=== PATIENT | female | born 1970 | race Caucasian/White ===

== ENCOUNTER 2020-08-01 07:45 | Outpatient (CLI) | payer OTHER, SELFPAY ==
[2020-08-01 08:14] LABS: Hematocrit 42.9 % (37.0-47.0); Hemoglobin 14.3 g/dL (12.0-15.0); Mean Corpuscular HGB Conc 33.3 g/dl (32-36); Mean Corpuscular Hemoglobin 30.7 pg (26-34); Mean Corpuscular Volume 92.1 fl (80-100); Mean Platelet Volume 9.6 fl (7.4-10.4); Platelet Count Result 291 k/mm3 (150-375); Red Blood Count 4.66 M/mm3 (4.2-5.4); Red Cell Distribution Width 12.9 % (11.5-14.5); White Blood Count 6.3 K/mm3 (4.5-10.0)
[2020-08-01 08:47] LABS: Erythrocyte Sedimentation Rate 23 mm/hr (0-20)
[2020-08-01 08:48] LABS: Alanine Aminotransferase 10 U/L (4-35); Albumin Level 3.9 g/dL (3.5-5.1); Alkaline Phosphatase 95 U/L (38-126); Anion Gap 7 mmol/L (8-16); Aspartate Amino Transferase 23 U/L (14-36); Bilirubin,Total 0.4 mg/dL (0.2-1.3); Blood Urea Nitrogen 12 mg/dL (7-17); Calcium 9.3 mg/dL (8.4-10.2); Carbon Dioxide 27 mmol/L (22-30); Chloride 106 mmol/L (98-107); Cholesterol 265 mg/dL (0-200); Estimated Glomerular Filt Rate > 60; Glucose 97 mg/dL (65-105); HDL Direct 51 mg/dL; Potassium 4.8 mmol/L (3.4-5.0); Rheumatoid Factor < 8.6 IU/ML (<12); Sodium 140 mmol/L (137-145); Triglycerides 121 mg/dL (<150)
[2020-08-01 08:57] LABS: LDL Cholesterol Direct 189 mg/dL
[2020-08-01 09:26] LABS: SARS-CoV-2 IgG Non-Reactive (NonReactive)
== END 2020-08-01 07:46 | disposition home or self-care (01) ==
PROVIDERS: PCP Family Medicine; Visit Provider Nurse Practitioner Family
DX: M25.50 Pain in unspecified joint (principal); F32.9 Major depressive disorder, single episode, unspecified; F41.9 Anxiety disorder, unspecified; Z13.220 Encounter for screening for lipoid disorders
CPT/HCPCS: 36415; 80053; 80061; 84443; 85027; 85652; 86038; 86430; 86769

== ENCOUNTER → 2021-01-09 08:56 | Outpatient (CLI) | payer BC, SELFPAY ==
[2021-01-09 21:09] LABS: SARS-CoV-2 RNA PCR Negative
== END ==
PROVIDERS: PCP Family Medicine; Visit Provider Nurse Practitioner Family
DX: R68.89 Other general symptoms and signs (principal); Z20.822 Contact with and (suspected) exposure to COVID-19
CPT/HCPCS: C9803; U0003; U0005

== ENCOUNTER 2021-01-19 12:55 | Emergency (ER) | payer BC, MEDICAID, SELFPAY ==
[2021-01-19 13:17] VITALS: BP 129/70; PULSE 107; RESP 20; TEMP 36.6; O2SAT 98
--- NOTE | 2021-01-19 13:48 | ED.GENADULT ---
HPI - General Adult General Chief complaint: Overdose Stated complaint: Well check Time Seen by Provider: 01/19/21 13:40 Source: patient, RN notes reviewed and old records reviewed Mode of arrival: ambulatory Limitations: no limitations History of Present Illness HPI narrative: 50year old female presents to express care with complaints of accidental ingestion of Adderall this morning. Patient states that she was switched to Vyvanse 30 mg extended release about 2 weeks ago and she took dose at 1000 this morning. She noticed 4 doses of her Adderall on the counter and put them in her hand to put into medicine bottle and somehow got distracted and grabbed her soda and took them without thinking at approximately 1130. After realizing what she had done she called her doctor and they told her go express care and get her blood pressure checked. After talking with poison control and the fact that Adderall was also time release and doesn't peek for 7-10 hours recommendation of patient needing cardiac monitoring for at least 4-5 more hours with labs and EKG, decision made to send to ER with family. Patient is very talkative and anxious, denies any chest pain, no chest pressure, no dyspnea,or palpitation at this time. MD complaint: accidental overdose of Adderall XL Onset (ago): hour(s) (1130 today) Treatments prior to arrival: none Related Data Home Medications Medication Instructions Recorded Confirmed calcipotriene-betamethasone 1 applic TOPICAL .PER PRESCRIPTION 01/19/21 01/19/21 [Enstilar] RE ixekizumab [Taltz Autoinjector (2 80 mg SUBCUT WEEKLY 01/19/21 01/19/21 Pack)] Allergies Allergy/AdvReac Type Severity Reaction Status Date / Time No Known Allergies Allergy Verified 01/19/21 14:02 Review of Systems Review of Systems: CONSTITUTIONAL: Denies fever, chills, or sweats. EYES: Denies visual changes, redness, or discharge. ENT: Denies rhinorrhea, congestion, sore throat, or otalgia. CARDIOVASCULAR: Denies chest pain, palpitations, or edema. RESPIRATORY: Denies cough or dyspnea. GASTROINTESTINAL: Denies abdominal pain, nausea, vomiting, or diarrhea. GENITOURINARY: Denies dysuria or hematuria. SKIN: Denies rash or itching. MUSCULOSKELETAL: Denies back pain, joint pain, or myalgia. NEUROLOGIC: Denies headache, numbness, or weakness. PSYCHIATRIC: Positive history anxiety or depression. All systems reviewed & are unremarkable except as noted in HPI and below PMFSH Past Medical History Medical History (Updated 01/19/21 @ 17:23 by Cass Salomon NP) Acquired lymphedema Anxiety and depression Attention-deficit hyperactivity disorder, predominantly hyperactive type BMI 34.0-34.9,adult Fracture of right heel surgical repair Insomnia Psoriasis Tobacco abuse Surgical History Surgical History (Updated 01/19/21 @ 16:54 by Cass Salomon NP) History of History of dilatation and curettage History of laparoscopy History of varicose vein stripping Family History Family History Grandparent Hypertension Family history of lung cancer Other Diabetes mellitus Family history of coronary artery disease Social History Social History Smoking status: Current every day smoker Second hand tobacco smoke exposure: No Alcohol intake: current Substance use type: does not use Gender identity (if verbalized by the patient): Female Comments At time of signature, agree with nursing past medical, surgical, social and family history. There is no relevant family history pertinent to the presenting complaint Exam Narrative: GENERAL: Well-appearing, well-nourished, and in no acute distress. HEAD: Normocephalic, atraumatic. EYES: PERRLA and EOMI. ENT: Nares clear, no rhinorrhea or epistaxis. Mucous membranes moist.TMs normal with good light reflex, throat pink with no lesions or exudates NECK: Supple.
[2021-01-19 14:19] VITALS: PULSE 92
--- NOTE | 2021-01-19 14:21 | ECG_ITS ---
Measurements Intervals [place] Rate: 92 P: 73 [place]: 117 QRS: 28 QRSD: 104 T: 64 QT: 381 QTc: 472 Interpretive Statements SINUS RHYTHM WITH SHORT [place] INTERVAL POSSIBLE RIGHT ATRIAL ENLARGEMENT POSSIBLE LEFT ATRIAL ENLARGEMENT INCOMPLETE RIGHT BUNDLE BRANCH BLOCK BASELINE ARTIFACT- I, II, III, AVR, AVL BORDERLINE ECG Electronically Signed On 01-19-2021 15:27:26 CDT by Milan Nunez D.O.
--- NOTE | 2021-01-19 15:48 | PC.NURSE ---
143-Poison control called at [phone]. Spoke to Art at poison control-given pts ingestion of 60mg of xl adderall which will not peak until 7-10 hrs after ingestion, recommendation is to do EKG, bmp and monitor pt for 4-5 hrs until past peak. Case number is [id number]. Art asks for poison control to be called when pt arrives in ED.
--- NOTE | 2021-01-19 15:57 | PC.NURSE ---
1419-Pt unchanged from initial assessment. NAD noted. Will continue to monitor.
--- NOTE | 2021-01-19 15:58 | PC.NURSE ---
1450-Pt unchanged from prior assessment. NAD noted. Discussed with pt need to be transferred to [facility] ED for monitoring due to recommendations from poison control. Listened to pts concerns and questions answered. Pt boyfriend en route to pick her up to take her to ED. Will continue to monitor.
== END 2021-01-19 15:31 | disposition short-term general hospital (02) ==
PROVIDERS: Emergency Provider Registered Nurse; PCP Family Medicine
DX: T43.621A Poisoning by amphetamines, accidental (unintentional), initial encounter (principal); I45.10 Unspecified right bundle-branch block; F17.210 Nicotine dependence, cigarettes, uncomplicated; F41.9 Anxiety disorder, unspecified; F90.9 Attention-deficit hyperactivity disorder, unspecified type
CPT/HCPCS: 93005; 99213; G0463

== ENCOUNTER 2021-01-19 15:55 | Emergency (ER) | payer BC, SELFPAY ==
[2021-01-19 15:57] VITALS: BP 144/107; PULSE 111; RESP 18; TEMP 36.8; O2SAT 99
[2021-01-19 16:12] VITALS: RESP 17
[2021-01-19 16:13] VITALS: BP 153/91; PULSE 97; RESP 14; O2SAT 97
[2021-01-19 16:43] LABS: Add Urine Microscopic? YES; Appearance Urine Cloudy (Clear); Bacteria Urine Trace /hpf; Bilirubin Urine Negative (Negative); Blood Urine 3+ (Negative); Color Urine Yellow (Yellow); Glucose Urine UA Negative (Negative); Ketones Urine Negative (Negative); Leukocyte Esterase Ur Negative LEU/UL (Negative); Mucus Urine Rare /lpf; Nitrate Urine Negative (Negative); Protein Urine 1+ mg/dL (Negative); RBC Urine 0-2 /hpf (0-2); Specific Grav Ur 1.005 (1.001-1.035); Squamous Epithelial Cell Urine Many /hpf (Few); Urobilinogen Urine Negative mg/dL (<2.0); WBC Urine 0-3 /hpf
[2021-01-19 17:46] VITALS: BP 138/88; PULSE 98; RESP 18; O2SAT 100
--- NOTE | 2021-01-19 17:50 | ED.OVERDOSE ---
HPI - Overdose General Chief Complaint: Overdose Stated Complaint: Took Adderal 60 mg Time Seen by Provider: 01/19/21 17:44 Source: patient Mode of arrival: ambulatory Limitations: no limitations History of Present Illness HPI Narrative: Patient is a 50-year-old female complaining of accidentally taking 4 of her Adderall pills around 11:30 AM this morning. When she realized that she took them she went to the urgent care, poison control was contacted and was advised that she need to be observed for 7 hours and that is why she was sent here. Patient has been asymptomatic throughout. She states that the Adderall pills are in her pillbox she took it out but in her hand was supposed to put it back in the bottle but somehow she accidentally put in her mouth, I am such a dummy , patient laughing. Denies any suicidal or homicidal thoughts. Denies any thoughts of injuring herself. Related Data Home Medications Medication Instructions Recorded Confirmed calcipotriene-betamethasone 1 applic TOPICAL .PER PRESCRIPTION 01/19/21 01/19/21 [Enstilar] RE ixekizumab [Taltz Autoinjector (2 80 mg SUBCUT WEEKLY 01/19/21 01/19/21 Pack)] Allergies Allergy/AdvReac Type Severity Reaction Status Date / Time No Known Allergies Allergy Verified 01/19/21 14:02 Review of Systems Review of Systems: All systems reviewed & are unremarkable except as noted in HPI and below Constitutional: Constitutional: Denies body ache(s), Denies chills, Denies excessive sweating, Denies fatigue, Denies fever(s), Denies headache(s), Denies lethargy, Denies malaise, Denies weakness and Denies weight loss Eyes: Eyes: Denies blurry vision, Denies change in vision and Denies loss of vision ENT: Denies dizziness, Denies ear discharge, Denies headache(s), Denies lip swelling, Denies epistaxis, Denies nasal congestion, Denies neck pain, Denies throat swelling and Denies tongue swelling Cardiovascular: Cardiovascular: Denies chest pain, Denies chest pain at rest, Denies chest pain with activity, Denies diaphoresis, Denies rapid heart rate, Denies edema, Denies irregular heart rhythm, Denies lightheadedness, Denies palpitations, Denies dyspnea and Denies dyspnea on exertion Respiratory: Respiratory: Denies chest congestion, Denies cough, Denies hemoptysis, Denies dyspnea and Denies dyspnea on exertion Gastrointestinal: Gastrointestinal: Denies abdominal pain, Denies melena, Denies hematochezia, Denies diarrhea, Denies nausea, Denies vomiting and Denies hematemesis Musculoskeletal: Musculoskeletal: Denies abnormal gait, Denies deformity, Denies joint swelling, Denies limited range of motion, Denies neck pain and Denies numbness Neurologic: Denies Abnormal speech present, Denies abnormal gait, Denies confusion, Denies dizziness, Denies headache(s), Denies focal weakness, Denies loss of vision, Denies numbness, Denies Other visual disturbances, Denies Sensory deficit (Neuro) and Denies weakness Psychiatric: Psychiatric: Denies confusion, Denies depression, Denies auditory hallucinations, Denies homicidal ideation and Denies suicidal ideation Endocrine: Endocrine: Denies cold intolerance, Denies excessive sweating, Denies fatigue, Denies heat intolerance and Denies palpitations Hematologic/Lymphatic: Hematologic/Lymphatic: Denies easy bleeding and Denies easy bruising Allergic/Immunologic: Allergic/Immunologic: Denies lip swelling, Denies throat swelling and Denies tongue swelling PMFSH Past Medical History Medical History Acquired lymphedema Anxiety and depression Attention-deficit hyperactivity disorder, predominantly hyperactive type BMI 34.0-34.9,adult Fracture of right heel surgical repair Insomnia Psoriasis Tobacco abuse Surgical History Surgical History History of History of dilatation and curettage History of laparoscopy History of varicose
[2021-01-19 18:59] VITALS: BP 127/92
== END 2021-01-19 19:02 | disposition home or self-care (01) ==
PROVIDERS: Physician Assistant; Emergency Provider Emergency Medicine; PCP Family Medicine
DX: T43.621A Poisoning by amphetamines, accidental (unintentional), initial encounter (principal); F90.1 Attention-deficit hyperactivity disorder, predominantly hyperactive type; F41.9 Anxiety disorder, unspecified; F32.9 Major depressive disorder, single episode, unspecified; F17.200 Nicotine dependence, unspecified, uncomplicated
CPT/HCPCS: 81001; 81025; 93005; 99213; 99283; G0463

== ENCOUNTER 2021-07-07 08:02 | Outpatient (CLI) | payer BC, SELFPAY ==
--- NOTE | ~2021-07-07 | XR_ITS ---
EXAMINATION: XR chest 2V DATE: 07/07/2021 08:39 INDICATION: Shortness of breath. TECHNIQUE: Frontal and lateral views of the chest were obtained. COMPARISON: None. FINDINGS: The chest demonstrates clear lungs without pneumonia, pleural effusion, or pneumothorax. Th e heart size is normal. IMPRESSION: 1. No acute cardiopulmonary disease. Reviewed, dictated and finalized at location E. [place] [employer]
== END 2021-07-07 08:03 ==
PROVIDERS: PCP Family Medicine; Visit Provider Nurse Practitioner Family
DX: R06.02 Shortness of breath (principal)
CPT/HCPCS: 71046

== ENCOUNTER 2021-09-21 10:58 | Emergency (ER) | payer BC, SELFPAY ==
[2021-09-21] VITALS (10 sets, daily range): BP systolic 103–152; BP diastolic 70–108; PULSE 56–65; RESP 13–18; TEMP 36.5; O2SAT 96–100
--- NOTE | ~2021-09-21 | CT_ITS ---
EXAMINATION: CT abd pelvis lumbar wo con DATE: 09/21/2021 12:49 INDICATION: Low back pain. TECHNIQUE: Computed tomography (CT) of the abdomen and pelvis and lumbar spine was performed without intravenous contrast. Automated exposure control and iterative reconstruction technique were employed . The dose-length product was 1046.07 mGy-cm. COMPARISON: None. FINDINGS: CT ABDOMEN AND PELVIS: The visualized portions of the lung bases demonstrate mild atelectasis. A calc ified right lung nodule is consistent with old granulomatous disease. There is a 4 mm nodule in right lower lobe, likely benign. No pleural effusion. The heart size is normal. No pericardial effusion. T he liver is normal. There are gallstones in the gallbladder, which is normal in size. Calcifications in the spleen are consistent with old granulomatous disease. The pancreas, adrenal glands, and kidney s are normal. There is no urolithiasis. There is an intrauterine device in expected position. There i s diverticulosis of the colon without evidence of diverticulitis. The appendix is normal. Calcified a bdominal lymph nodes are consistent with old granulomatous disease. There is an umbilical hernia cont aining fat. There is fat stranding at the root of the small bowel mesentery. There is no free intrape ritoneal fluid. CT LUMBAR SPINE: There is 14 degrees dextroscoliosis of lumbar spine. There is mild chronic anterior wedging of T12 and L1 vertebral bodies. There are Schmorl's nodes at most levels. There is mildly dec reased disc height at L1-L2, L2-L3, and L4-L5 and severely decreased disc height at L5-S1 with endpla te remodeling. There are hemangiomas in T12 and L1 vertebral bodies. The following disc levels are sp ecifically discussed: L1-L2: The disc is bulging. There is mild bilateral facet joint osteoarthritis. There is no neural fo raminal stenosis. There is mild central canal stenosis. L2-L3: The disc is bulging. There is moderate right and mild left facet joint osteoarthritis. There i s mild neural foraminal stenosis. There is mild central canal stenosis. L3-L4: The disc is bulging. There is severe bilateral facet joint osteoarthritis. There is mild bilat eral neural foraminal stenosis. There is mild central canal stenosis. L4-L5: The disc is bulging. There is severe bilateral facet joint osteoarthritis. There is mild right and moderate left neural foraminal stenosis. There is mild central canal stenosis. L5-S1: The disc is bulging. There is severe bilateral facet joint osteoarthritis. There is mild bilat eral neural foraminal stenosis. There is mild central canal stenosis. IMPRESSION: 1. No urolithiasis. 2. Cholelithiasis. 3. Fat stranding at the root of the small bowel mesentery, likely inflammation or scarring (mesenteri c panniculitis). 4. Umbilical hernia containing fat. 5. Moderate lumbar spondylosis. 6. Lumbar dextroscoliosis. Reviewed, dictated and finalized at location A. IMPRESSION: 1. No urolithiasis. 2. Cholelithiasis. 3. Fat stranding at the root of the small bowel mesentery, likely inflammation or scarring (mesenteric panniculitis). 4. Umbilical hernia containing fat. 5. Moderate lumbar spondylosis. 6. Lumbar dextroscoliosis.
--- NOTE | 2021-09-21 12:19 | ED.BACK ---
HPI - Back Pain/Injury General Chief Complaint: Back Pain/Injury Stated Complaint: back pain Time Seen by Provider: 09/21/21 12:19 Source: patient, family and EMS Mode of arrival: EMS Limitations: no limitations History of Present Illness HPI Narrative: Patient is 51 years old white female presented to the ED with sharp stabbing pain across lumbar area started 5 days ago, worse with any movement, better laying down still. Patient was seen by her family physician, [place] [facility] yesterday, been to chiropractor for the last few days without any improvement. Currently patient on hydrocodone, Flexeril and ibuprofen. Patient denies patient denies bowel dysfunction, bladder dysfunction, altered sensation, focal weakness, or saddle numbness, she denies any fever, chills, nausea, vomiting, abdominal pain, chest pain, radiation of pain. Related Data Home Medications Medication Instructions Recorded Confirmed ixekizumab [Taltz Autoinjector (2 80 mg SUBCUT WEEKLY 01/19/21 05/24/21 Pack)] Allergies Allergy/AdvReac Type Severity Reaction Status Date / Time No Known Allergies Allergy Verified 09/21/21 11:10 Review of Systems Review of Systems: All systems reviewed & are unremarkable except as noted in HPI and below PMFSH Past Medical History Medical History Acquired lymphedema Anxiety and depression Attention-deficit hyperactivity disorder, predominantly hyperactive type BMI 34.0-34.9,adult BMI 36.0-36.9,adult Chronic joint pain Fracture of right heel surgical repair GERD without esophagitis Insomnia Psoriasis Tobacco abuse Surgical History Surgical History History of History of dilatation and curettage History of laparoscopy History of varicose vein stripping Family History Family History Grandparent Hypertension Family history of lung cancer Other Diabetes mellitus Family history of coronary artery disease Social History Social History Smoking status: Current every day smoker Tobacco type: cigarettes Second hand tobacco smoke exposure: No Alcohol intake: current Substance use type: does not use Gender identity (if verbalized by the patient): Female Exam Narrative: General appearance: Well-developed, well-nourished Skin: Normal color Head: Normocephalic, nontraumatic Eyes: Clear conjunctiva ENT: Oropharynx normal, ears normal, nose normal Neck: Supple, nontender Chest and respiratory: Airway patent, no respiratory distress, no accessory muscle use Heart: Regular rate/rhythm Abdomen: Soft, nontender, no organomegaly, quiet bowel sounds Vascular: Normal peripheral pulses, normal capillary refill. Musculoskeletal: Severe diffuse tenderness across lumbar area, patient experience periodic spasm at the lumbar area with sudden scream of pain. Neurologic: Alert and oriented ?3, [employer] INS[employer]OR is normal as tested, no gross motor deficit Course Course Emergency Course: Stable, musculoskeletal pain is my concern. Vital Signs Vital signs: Vital Signs Temperature 36.5 C 09/21/21 11:06 Pulse Rate 56 L 09/21/21 11:06 Respiratory Rate 18 09/21/21 11:06 Blood Pressure 152/108 H 09/21/21 11:06 Pulse Oximetry 100 09/21/21 11:06 Temperature 36.5 C 09/21/21 11:06 Pulse Rate 56 L 09/21/21 11:06 Respiratory Rate 18 09/21/21 11:06 Blood Pressure 152/108 H 09/21/21 11:06 Pulse Oximetry 100 09/21/21 11:06 MDM - Back Pain/Injury MDM Narrative Medical decision making narrati
[2021-09-21] MEDS: diazePAM INJ (*CRX) 10 MG/2 ML SYRINGE 5 MG IV PUSH (12:53)
[2021-09-21] MEDS: HYDROmorphone HCL INJ (*CRX) 1 MG/ML SYR 0.5 MG IV PUSH (12:54)
[2021-09-21] MEDS: diphenhydrAMINE HCl INJ 50 MG/ML VIAL 25 MG IV PUSH (12:54)
[2021-09-21] MEDS: KETOROLAC 30 MG/ML VIAL (*BKC) IV PUSH (12:55)
[2021-09-21] MEDS: METOCLOPRAMIDE HCL INJ 10 MG/2 ML VIAL IV PUSH (12:55)
[2021-09-21 13:03] LABS: Basophils Absolute Auto 0.1 K/mm3 (0.0-0.1); Basophils Percent Auto 1.2 % (0.2-1.2); Eosinophils Absolute Auto 0.1 K/mm3 (0-0.3); Hemoglobin 12.4 g/dL (12.0-15.0); Immature Granulocyte Absolute 0.01 K/mm3 (0.00-0.031); Immature Granulocyte Percent A 0.2 % (0-0.5); Lymphocytes Absolute Auto 2.33 K/mm3 (0.9-3.2); Lymphocytes Percent Auto 39.2 % (18.3-44.2); Mean Corpuscular HGB Conc 32.6 g/dl (32-36); Mean Corpuscular Hemoglobin 30.8 pg (26-34); Mean Corpuscular Volume 94.3 fl (80-100); Mean Platelet Volume 9.8 fl (7.4-10.4); Monocytes Absolute Auto 0.6 K/mm3 (0.1-0.6); Monocytes Percent Auto 9.9 % (2.6-8.5); Neutrophils Absolute Auto 2.8 K/mm3 (1.3-6.7); Neutrophils Percent Auto 47.5 % (45.5-73.1); Platelet Count Result 190 k/mm3 (150-375); Red Blood Count 4.03 M/mm3 (4.2-5.4); Red Cell Distribution Width 13.1 % (11.5-14.5)
--- NOTE | 2021-09-21 13:12 | PC.NURSE ---
called lab and talked to Haydee. added on a CRP and ESR at 1312
[2021-09-21 13:13] LABS: Alanine Aminotransferase 10 U/L (4-35); Albumin Level 3.1 g/dL (3.5-5.1); Alkaline Phosphatase 82 U/L (38-126); Anion Gap 1 mmol/L (8-16); Aspartate Amino Transferase 29 U/L (14-36); Bilirubin,Total 0.4 mg/dL (0.2-1.3); Blood Urea Nitrogen 5 mg/dL (7-17); Calcium 8.3 mg/dL (8.4-10.2); Carbon Dioxide 27 mmol/L (22-30); Chloride 110 mmol/L (98-107); Estimated CRCL calculation 109 ml/min; Estimated Glomerular Filt Rate > 60; Glucose 95 mg/dL (65-110); Potassium 3.7 mmol/L (3.4-5.0); Sodium 138 mmol/L (137-145)
[2021-09-21 13:52] LABS: Erythrocyte Sedimentation Rate 1 mm/hr (0-20)
== END 2021-09-21 14:22 | disposition home or self-care (01) ==
PROVIDERS: Emergency Provider Emergency Medicine; PCP Family Medicine
DX: M54.50 Low back pain, unspecified (principal); K21.9 Gastro-esophageal reflux disease without esophagitis; L40.9 Psoriasis, unspecified; F41.9 Anxiety disorder, unspecified; F32.A Depression, unspecified; K80.20 Calculus of gallbladder without cholecystitis without obstruction; K42.9 Umbilical hernia without obstruction or gangrene; M47.816 Spondylosis without myelopathy or radiculopathy, lumbar region
CPT/HCPCS: 36415; 72131; 74176; 80053; 85025; 85652; 86140; 96374; 96375; 99284; J1170; J1200; J1885; J2765; J3360

== ENCOUNTER 2021-11-20 18:50 | Emergency (ER) | payer BC, SELFPAY ==
--- NOTE | ~2021-11-20 | XR_ITS ---
XR hand RT min 3V DATE: 11/20/2021 19:06 INDICATION: Hyperextension injury of second through fifth fingers. Pain particularly at the third and fourth proximal phalanges TECHNIQUE: 3 views COMPARISON: None FINDINGS: No fracture or dislocation, periosteal reaction or bone destruction. Mild osteoarthritic change at the interphalangeal joints. IMPRESSION: No fracture or dislocation Reviewed, dictated and finalized at location B. IMPRESSION: No fracture or dislocation
[2021-11-20 19:10] VITALS: BP 145/94; PULSE 83; RESP 18; TEMP 36.9; O2SAT 99
--- NOTE | 2021-11-20 19:28 | ED.UPPEXIN ---
HPI - Extremity Injury (Upper) General Chief Complaint: Extremity Injury, Upper Stated Complaint: Rt Hand Pain Time Seen by Provider: 11/20/21 19:20 Source: patient, RN notes reviewed and old records reviewed History of Present Illness HPI narrative: 51-year-old female presents Express Care with complaints of injury to her right hand when she hyperextended her second through fifth fingers with pain mainly in the third and fourth proximal phalanges. Patient states she has 2 large great Mariusz's and she was dealing with them and the dog backed up against her hand causing hyperextension. Patient has applied ice to her right hand. MD complaint: injury to: right and hand Onset (ago): hour(s) (2.5 hours ago) Handedness: right Severity scale (1-10): 10 Treatments prior to arrival: cold therapy Related Data Home Medications Medication Instructions Recorded Confirmed levonorgestrel 20 mcg/24 hours (7 1 device intrauterine ONCE 11/20/21 11/20/21 yrs) 52 mg intrauterine device (Mirena) Allergies Allergy/AdvReac Type Severity Reaction Status Date / Time No Known Allergies Allergy Verified 11/20/21 19:04 Review of Systems Review of Systems: CONSTITUTIONAL: Denies fever, chills, or sweats. EYES: Denies visual changes, redness, or discharge. ENT: Denies rhinorrhea, congestion, sore throat, or otalgia. CARDIOVASCULAR: Denies chest pain, palpitations, or edema. RESPIRATORY: Denies cough or dyspnea. GASTROINTESTINAL: Denies abdominal pain, nausea, vomiting, or diarrhea. GENITOURINARY: Denies dysuria or hematuria. SKIN: Denies rash or itching. MUSCULOSKELETAL: Denies back pain, positive for right hand pain and discomfort to proximal aspect of 2nd through 5th fingers, or myalgia. NEUROLOGIC: Denies headache, numbness, or weakness. PSYCHIATRIC: Positive history anxiety or depression. [facility] Past Medical History Medical History Acquired lymphedema Anxiety and depression Attention-deficit hyperactivity disorder, predominantly hyperactive type BMI 34.0-34.9,adult BMI 36.0-36.9,adult Cholelithiasis Chronic joint pain Dextroscoliosis of thoracolumbar spine Fracture of right heel surgical repair GERD without esophagitis Insomnia Lumbar spondylosis Mesenteric panniculitis Psoriasis Tobacco abuse Umbilical hernia Wedge fracture of lumbar vertebra Surgical History Surgical History History of History of dilatation and curettage History of laparoscopy History of varicose vein stripping Family History Family History Grandparent Hypertension Family history of lung cancer Other Diabetes mellitus Family history of coronary artery disease Social History Social History Smoking status: Current every day smoker Tobacco type: cigarettes Second hand tobacco smoke exposure: No Alcohol intake: current Substance use type: does not use Gender identity (if verbalized by the patient): Female Comments At time of signature, agree with nursing past medical, surgical, social and family history. There is no relevant family history pertinent to the presenting complaint Exam Narrative: GENERAL: Well-appearing, well-nourished, and in no acute distress. HEAD: Normocephalic, atraumatic. EYES: PERRLA and EOMI. ENT: Nares clear, no rhinorrhea or epistaxis. Mucous membranes moist. TMs normal with good light reflex, throat pink with no lesions or exudate NECK: Supple. No lymphadenopathy CHEST: Clear to auscultation. No respiratory distress SaO2 99% on room air no tachypnea HEART: Regular rate and rhythm. No murmur heard. Normal peripheral pulses. ABDOMEN: Soft, nontender, nondistended, normal active bowel sounds. EXTREMITIES: Normal range of motion. No edema.Exception note: Mild edema to proximal aspec
== END 2021-11-20 19:49 | disposition home or self-care (01) ==
PROVIDERS: Emergency Provider Registered Nurse; PCP Family Medicine
DX: S69.91XA Unspecified injury of right wrist, hand and finger(s), initial encounter (principal); W54.1XXA Struck by dog, initial encounter; K21.9 Gastro-esophageal reflux disease without esophagitis; M47.816 Spondylosis without myelopathy or radiculopathy, lumbar region
CPT/HCPCS: 73130; 99213; G0463

== ENCOUNTER 2022-01-18 12:16 | Emergency (ER) | payer BC, SELFPAY ==
[2022-01-18] VITALS (20 sets, daily range): BP systolic 119–135; BP diastolic 49–97; PULSE 69; RESP 18; TEMP 36.5; O2SAT 97–100
--- NOTE | ~2022-01-18 | US_ITS ---
EXAMINATION: US pelvic complete w TV DATE: 01/18/2022 15:59 INDICATION: Nausea, vomiting and diarrhea. Right lower quadrant pain. Comparison:No prior studies for comparison. TECHNIQUE: Multiple transabdominal and endovaginal sonographic images of the pelvis performed. FINDINGS: The uterus measures 8.8 x 4.2 x 5.4 cm. There is an IUD present in the endometrium. The end ometrial complex measures 5 mm. There are nabothian cysts. The right ovary measures 2.8 x 1.5 x 1.5 cm and the left ovary measures 3.4 x 1.4 x 1.4 cm. There ar e small follicles in each ovary. Normal doppler signal in both ovaries. There is no free fluid in the pelvis. There are no abnormal masses seen on either side. IMPRESSION: 1. Unremarkable pelvic ultrasound. IUD identified in the endometrium. Reviewed, dictated and finalized at location A.
--- NOTE | ~2022-01-18 | CT_ITS ---
EXAMINATION: CT abdomen pelvis w con DATE: 01/18/2022 14:43 INDICATION: Right lower quadrant abdominal pain. Nausea and vomiting. TECHNIQUE: Computed tomography (CT) of the abdomen and pelvis was performed with 100 mL Omnipaque 350 intravenous contrast. Automated exposure control and iterative reconstruction technique were employe d. The dose-length product was 847.94 mGy-cm. COMPARISON: CT abdomen and pelvis 09/21/2021 FINDINGS: The visualized portions of the lung bases demonstrate mild atelectasis. A calcified right l javier nodule is consistent with old granulomatous disease. No pleural effusion. The heart size is aron l. No pericardial effusion. The liver is normal. Calcifications in the spleen are consistent with old granulomatous disease. There are gallstones in the gallbladder, which is normal in size. The pancrea s, adrenal glands, and kidneys are normal. There is an intrauterine device in expected position. Ther e is diverticulosis of the colon without evidence of diverticulitis. The appendix is normal. There is an umbilical hernia containing fat. There are no pathologically enlarged lymph nodes. There is no fr ee intraperitoneal fluid. There is lumbar dextroscoliosis and severe spondylosis. IMPRESSION: 1. Cholelithiasis. No evidence of acute cholecystitis. 2. Umbilical hernia containing fat. Reviewed, dictated and finalized at location A.
[2022-01-18 13:00] LABS: Basophils Absolute Auto 0.1 K/mm3 (0.0-0.1); Basophils Percent Auto 1.2 % (0.2-1.2); Eosinophils Absolute Auto 0.1 K/mm3 (0-0.3); Eosinophils Percent Auto 1.6 % (0-4.4); Hematocrit 44.3 % (37.0-47.0); Hemoglobin 14.7 g/dL (12.0-15.0); Lymphocytes Absolute Auto 1.99 K/mm3 (0.9-3.2); Lymphocytes Percent Auto 39.2 % (18.3-44.2); Mean Corpuscular HGB Conc 33.2 g/dl (32-36); Mean Corpuscular Hemoglobin 30.1 pg (26-34); Mean Corpuscular Volume 90.6 fl (80-100); Mean Platelet Volume 10.1 fl (7.4-10.4); Monocytes Absolute Auto 0.4 K/mm3 (0.1-0.6); Monocytes Percent Auto 8.1 % (2.6-8.5); Neutrophils Absolute Auto 2.5 K/mm3 (1.3-6.7); Neutrophils Percent Auto 49.9 % (45.5-73.1); Platelet Count Result 281 k/mm3 (150-375); Red Blood Count 4.89 M/mm3 (4.2-5.4); Red Cell Distribution Width 12.5 % (11.5-14.5); White Blood Count 5.1 K/mm3 (4.5-10.0)
[2022-01-18 13:15] LABS: Alanine Aminotransferase 9 U/L (6-35); Albumin Level 4.5 g/dL (3.5-5.1); Alkaline Phosphatase 90 U/L (38-126); Anion Gap 8 mmol/L (8-16); Aspartate Amino Transferase 26 U/L (14-36); Bilirubin,Total 0.5 mg/dL (0.2-1.3); Blood Urea Nitrogen 5 mg/dL (7-17); Calcium 9.8 mg/dL (8.4-10.2); Carbon Dioxide 25 mmol/L (22-30); Chloride 102 mmol/L (98-107); Estimated CRCL calculation 102 ml/min; Estimated Glomerular Filt Rate > 60; Glucose 100 mg/dL (65-110); Lipase 41 U/L (23-300); Sodium 135 mmol/L (137-145)
[2022-01-18 13:19] LABS: Appearance Urine Clear (Clear); Bilirubin Urine Negative (Negative); Color Urine Yellow (Yellow); Glucose Urine UA Negative (Negative); Ketones Urine Negative (Negative); Leukocyte Esterase Ur Negative LEU/UL (Negative); Nitrate Urine Negative (Negative); Protein Urine Negative (Negative); Specific Grav Ur <= 1.005 (1.001-1.035); Urobilinogen Urine 0.2 mg/dL (<2.0)
[2022-01-18 13:30] LABS: Bacteria Urine Trace /hpf; Mucus Urine Rare /lpf; RBC Urine 0-2 /hpf (0-2); Squamous Epithelial Cell Urine Rare /hpf (Few); WBC Urine 0-3 /hpf
[2022-01-18 13:31] LABS: Add Urine Microscopic? YES; Blood Urine Trace-Intact (Negative)
--- NOTE | 2022-01-18 13:58 | ED.ABDPAIN ---
HPI - Abdominal Pain General Chief Complaint: Abdominal Pain Stated Complaint: abd pain Time Seen by Provider: 01/18/22 13:32 History of Present Illness HPI narrative: Patient is a 51-year-old female who presents to the ER with right lower quadrant abdominal pain. Abdominal discomfort began 2 days ago was associate with diarrhea. Pain settled in the right lower quadrant. Hurts worse with movement and palpation. Diarrhea is stopped. No fevers or chills or sweats. No urinary frequency urgency or dysuria. No additional concerns. Related Data Home Medications Medication Instructions Recorded Confirmed levonorgestrel 20 mcg/24 hours (7 1 device intrauterine ONCE 11/20/21 01/18/22 yrs) 52 mg intrauterine device (Mirena) Allergies Allergy/AdvReac Type Severity Reaction Status Date / Time No Known Allergies Allergy Verified 01/18/22 11:35 Review of Systems Review of Systems: All systems reviewed & are unremarkable except as noted in HPI and below Constitutional: Constitutional: Denies chills, Denies fatigue and Denies fever(s) ENT: Denies nasal congestion and Denies sore throat Cardiovascular: Cardiovascular: Denies chest pain and Denies rapid heart rate Gastrointestinal: Gastrointestinal: Reports abdominal pain and Reports diarrhea PMFSH Past Medical History Medical History (Updated 01/18/22 @ 17:28 by Zaki Ferguson MD) Abdominal pain, RLQ Acquired lymphedema Anxiety and depression Attention-deficit hyperactivity disorder, predominantly hyperactive type BMI 34.0-34.9,adult BMI 36.0-36.9,adult BMI over 35 Cholelithiasis Chronic joint pain Dextroscoliosis of thoracolumbar spine Fracture of right heel surgical repair GERD without esophagitis Insomnia Jaw pain Lumbar spondylosis Mesenteric panniculitis Nausea and vomiting Psoriasis Tobacco abuse Umbilical hernia Wedge fracture of lumbar vertebra Surgical History Surgical History History of History of dilatation and curettage History of laparoscopy History of varicose vein stripping Family History Family History Grandparent Hypertension Family history of lung cancer Other Diabetes mellitus Family history of coronary artery disease Social History Social History Smoking status: Current every day smoker Tobacco type: cigarettes Second hand tobacco smoke exposure: No Alcohol intake: current Substance use type: does not use Gender identity (if verbalized by the patient): Female Exam Narrative: GENERAL: Well-appearing, well-nourished, and in no acute distress. HEAD: Normocephalic, atraumatic. ENT: Mucous membranes moist. CHEST: Clear to auscultation. No respiratory distress. HEART: Regular rate and rhythm. Normal peripheral pulses. ABDOMEN: Soft, moderate right lower quadrant tenderness with guarding, nondistended. EXTREMITIES: Normal range of motion. No edema. SKIN: Warm, dry, no rash. NEURO: Alert and oriented x3. PSYCH: Normal mood and affect. Course Course Emergency Course: Patient resting comfortably. Informed results. Discussed gallstones which is unlikely the cause of her pain but was noted on imaging. Vital Signs Vital signs: Vital Signs Temperature 97.7 F 01/18/22 12:51 Pulse Rate 69 01/18/22 12:51 Respiratory Rate 18 01/18/22 12:51 Blood Pressure 130/81 01/18/22 12:51 Pulse Oximetry 100 01/18/22 12:51 Oxygen Delivery Room Air 01/18/22 12:51 Temperature 97.7 F 01/18/22 12:51 Pulse Rate 69 01/18/22 12:51 Respiratory Rate 18 01/18/22 12:51 Blood Pressure 120/81 01/18/22 16:46 Pulse Oximetry 100 01/18/22 16:46 Oxygen Delivery Room Air 01/18/22 12:51 MDM - Abdominal Pain Lab Data Result diagrams: 01/18/22 12:52 01/18/22 12:52 Labs: Lab Re
[2022-01-18] MEDS: MORPHINE SULFATE (*CRX) 4 MG/ML INJ IV PUSH (14:24)
--- NOTE | 2022-01-18 14:42 | PC.NURSE ---
Patient off unit to CT.
--- NOTE | 2022-01-18 15:24 | PC.NURSE ---
Patient off unit to CT.
== END 2022-01-18 18:13 | disposition home or self-care (01) ==
PROVIDERS: Emergency Provider Emergency Medicine; PCP Family Medicine
DX: K80.20 Calculus of gallbladder without cholecystitis without obstruction (principal); K21.9 Gastro-esophageal reflux disease without esophagitis; F17.210 Nicotine dependence, cigarettes, uncomplicated; Z97.5 Presence of (intrauterine) contraceptive device; K42.9 Umbilical hernia without obstruction or gangrene
CPT/HCPCS: 36415; 74177; 76830; 76856; 80053; 81001; 81025; 83690; 85025; 96374; 99284; J2270; Q9967

== ENCOUNTER 2022-02-21 15:40 | Outpatient (CLI) | payer BC, SELFPAY ==
--- NOTE | ~2022-02-21 | MR_ITS ---
EXAMINATION: MR lumbar spine wo con DATE: 02/21/2022 16:21 INDICATION: Lumbar spondylosis TECHNIQUE: Magnetic resonance imaging (MRI) of the lumbar spine was performed without intravenous con trast. Sequences included sagittal T2-weighted FSE, sagittal T2-weighted FS FSE, sagittal T1-weighted FSE, and axial T2-weighted FSE. COMPARISON: CT abdomen and pelvis dated 09/21/2021 FINDINGS: 18 degree dextroscoliosis measured between L1 and L4. 2 mm retrolisthesis L5 on S1. Stable appearance of chronic mild anterior wedging at L1 with 20% anterior vertebral body height loss and at T12 with <20% anterior vertebral body height loss. T1 and T2 hyperintense hemangiomas at both T12 and L1. Ther e are a few small Schmorl's nodes along the endplates of the lower thoracic and upper lumbar spine. M oderate disc height loss at T11-T12, L1-L2, L2-L3 and L5-S1. Mild disc height loss at T12-L1, L2-L3 a nd L3-L4. The conus medullaris terminates at T12-L1. There is normal signal in the caudal spinal cord . Paravertebral soft tissues are unremarkable. The following disc levels are specifically discussed: L1-L2: Disc is bulging eccentric to the right. There is mild bilateral facet joint osteoarthritis. Th ere is mild right neural foraminal stenosis. There is mild central canal stenosis. L2-L3: Disc is bulging with superimposed annular fissure and small right paracentral central disc ext rusion with disc material extending couple millimeters caudal to the level of the superior endplate o f L3. There is moderate right and mild left facet joint osteoarthritis. There is mild right and mild to moderate left neural foraminal stenosis. There is mild central canal stenosis. L3-L4: Disc is bulging. There is mild right and moderate to severe left facet joint osteoarthritis. T here is mild bilateral neural foraminal stenosis. There is mild central canal stenosis. L4-L5: Disc is bulging. There is hypertrophy of the ligamentum flavum. There is severe bilateral fac et joint osteoarthritis. There is are bilateral neural foraminal stenosis. There is moderate central canal stenosis along with narrowing of the left and right lateral recesses. L5-S1: Disc is bulging. There is moderate right and severe left facet joint osteoarthritis. There is mild left and mild to moderate right neural foraminal stenosis. There is mild central canal stenosis. IMPRESSION: 1. 18 degrees lumbar dextroscoliosis with moderate spondylosis. Reviewed, dictated and finalized at location A.
== END 2022-02-21 15:41 | disposition home or self-care (01) ==
LOC: ANHIMG 15:44
PROVIDERS: PCP Family Medicine; Visit Provider Family Medicine
DX: M47.817 Spondylosis without myelopathy or radiculopathy, lumbosacral region (principal); M48.07 Spinal stenosis, lumbosacral region
CPT/HCPCS: 72148

== ENCOUNTER → 2022-04-15 15:01 | Outpatient (CLI) | payer BC, SELFPAY ==
--- NOTE | ~2022-04-15 | XR_ITS ---
XR elbow LT 2V DATE: 04/15/2022 15:18 INDICATION: Bilateral elbow pain. No injury. TECHNIQUE: AP and lateral views COMPARISON: None FINDINGS: There is mild spurring of the coronoid process of the proximal ulna. No fracture or disloca tion of the left elbow or elbow joint effusion. No periosteal reaction or bone destruction. IMPRESSION: Mild degenerative change Reviewed, dictated and finalized at location A. 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
--- NOTE | ~2022-04-15 | XR_ITS ---
XR elbow RT 2V DATE: 04/15/2022 15:18 INDICATION: Bilateral elbow pain. No injury. TECHNIQUE: AP and lateral views COMPARISON: 05/12/2019 right elbow FINDINGS: No fracture or dislocation or joint effusion. No periosteal reaction or bone destruction. IMPRESSION: No significant abnormality Reviewed, dictated and finalized at location A. OF [employer]CH[employer]YING IMPRESSION: No significant abnormality
== END ==
PROVIDERS: PCP Family Medicine; Visit Provider Physician Assistant Medical
DX: M25.521 Pain in right elbow (principal); M19.022 Primary osteoarthritis, left elbow
CPT/HCPCS: 73070

== ENCOUNTER 2022-06-13 09:07 | Outpatient (CLI) | payer BC, SELFPAY ==
--- NOTE | 2022-06-13 10:45 | NEURO_ITS ---
Impression: # History of bilateral elbow pain. # Normal nerve conduction study. # Normal needle/EMG exam. # Clinical correlation recommended. Motor Nerve Conduction Upper Extremities Median Nerve Conduction Velocity (m/sec) Terminal Latency (msec) Response Voltage(mV) Elbow-Wrist Wrist Elbow Wrist Right 58 3.8 3 7 Left 56 3.3 3 6 Ulnar Nerve Conduction Velocity (m/sec) Terminal Latency (msec) Response Voltage(mV) Above Elbow Below Elbow Wrist Above Elbow Below Elbow Wrist Right 58 58 2.5 5 6 6 Left 56 56 2.5 5 4 5 F-Wave Latency Median (ms) Ulnar (ms) Right 28.8 28.7 Left 28.5 28.9 Sensory Nerve Conduction Upper Extremities Median Nerve Stimulation Terminal Latency (msec) Wrist/Digit Response Voltage (uV) Wrist Right 3.2/3.2 47/36 Left 3.3/3.3 58/52 Ulnar Nerve Stimulation Terminal Latency (msec) Wrist/Digit Response Voltage (uV) Wrist Right 3.0 42 Left 3.0 47 Radial Nerve Terminal Latency (msec) Response Voltage(mV) Right 2.1 37 Left 2.0 32 Left Right Muscles Examined Fibrillation Fasciculation Scarcity Voltage Duration Left Right Left Right Left Right Left Right Left Right Deltoid Biceps X X Brachioradialis Triceps X X Pronator Teres X X Ext Indicis X X Ext Digitorum X X Abd Poll Brev X X 1st Dorsal Interosseus Paraspinals MTDD
== END 2022-06-13 09:08 | disposition home or self-care (01) ==
PROVIDERS: PCP Family Medicine; Visit Provider Physician Assistant Medical
DX: M79.642 Pain in left hand (principal); M79.641 Pain in right hand; R29.898 Other symptoms and signs involving the musculoskeletal system; M25.521 Pain in right elbow; M25.522 Pain in left elbow
CPT/HCPCS: 95886; 95911

== ENCOUNTER 2023-04-09 07:25 | Outpatient (CLI) | payer OTHER, SELFPAY ==
--- NOTE | ~2023-04-09 | MR_ITS ---
MRI of the right hand CLINICAL HISTORY: Sinusitis injury TECHNIQUE: Coronal T1-weighted and T2 fat-sat images, axial T1-weighted, T1 fat-sat, and T2 fat-sat i mages, and sagittal T1-weighted and T2 fat-sat images were acquired. FINDINGS: There is marrow edema of the fourth metatarsal shaft and fourth metatarsal head, with prese rved T1 marrow signal. No distinct fracture or periosteal reaction evident. There is surrounding soft tissue edema about the fourth metacarpal. There is probable small joint effusion of the fourth metac arpophalangeal joint. Remaining osseous structures and joints are unremarkable. No other bone marrow signal abnormality see n. No joint effusion seen. Flexor and extensor tendons are intact. No other soft tissue edema or fluid collection seen. IMPRESSION: Marrow edema of the fourth metatarsal shaft/fourth metatarsal head without fracture or abnormal T1 ma rrow signal. Findings suggest bone contusion. Surrounding soft tissue edema is compatible with posttraumatic change. Correlate for inflammatory pro cess. Small fourth metacarpal phalangeal joint effusion, nonspecific. Reviewed, dictated and finalized at location . IOVASCULAR LAB DIRECTOR IMPRESSION: Marrow edema of the fourth metatarsal shaft/fourth metatarsal head without frac ture or abnormal T1 marrow signal. Findings suggest bone contusion. Surrounding soft tissue edema is compatible with posttraumatic change. Correlat e for inflammatory process. Small fourth metacarpal phalangeal joint effusion, nonspecific.
== END 2023-04-09 07:26 | disposition home or self-care (01) ==
PROVIDERS: PCP Family Medicine; Visit Provider Nurse Practitioner Family
DX: M25.441 Effusion, right hand (principal); M79.89 Other specified soft tissue disorders
CPT/HCPCS: 73218

== ENCOUNTER 2023-06-10 13:32 | Outpatient (CLI) | payer OTHER, SELFPAY ==
--- NOTE | ~2023-06-10 | XR_ITS ---
XR elbow RT min 3V DATE: 06/10/2023 13:47 INDICATION: Right elbow pain. No injury. TECHNIQUE: 4 views COMPARISON: None FINDINGS: No fracture or dislocation or joint effusion. No periosteal reaction or bone destruction. T here is mild spurring of the coronoid process. Joint spaces are relatively preserved. IMPRESSION: Mild degenerative change Reviewed, dictated and finalized at location L. TOR OF EDUCATION IMPRESSION: Mild degenerative change
--- NOTE | ~2023-06-10 | XR_ITS ---
XR elbow LT min 3V DATE: 06/10/2023 13:46 INDICATION: Left elbow pain. No injury. TECHNIQUE: 4 views COMPARISON: 04/15/2022 left elbow FINDINGS: There is mild degenerative spurring at the elbow joint. Joint spaces are relatively preserv ed. No fracture or dislocation or joint effusion. No periosteal reaction or bone destruction. IMPRESSION: Mild degenerative change Reviewed, dictated and finalized at location L. 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
== END 2023-06-10 13:33 | disposition home or self-care (01) ==
LOC: ANHIMG 13:35
PROVIDERS: PCP Family Medicine; Visit Provider Orthopaedic Surgery
DX: M25.521 Pain in right elbow (principal); M25.522 Pain in left elbow
CPT/HCPCS: 73080

== ENCOUNTER 2023-06-20 13:41 | Emergency (ER) | payer OTHER, SELFPAY ==
[2023-06-20 13:50] VITALS: BP 114/81; PULSE 82; RESP 16; TEMP 36.4; O2SAT 100
--- NOTE | 2023-06-20 14:10 | ED.SKABFB ---
HPI - Skin/Abscess/Foreign Bdy General Chief complaint: Skin/Abscess/Foreign Body Stated complaint: Left Toe Infection Time Seen by Provider: 06/20/23 14:00 Source: patient, family, RN notes reviewed and old records reviewed Mode of arrival: ambulatory Limitations: no limitations History of Present Illness HPI narrative: 53 year old female accompanied by family presents [facility] with complaints injury to her left 5th toe which occurred about 4 weeks ago when her Great Mariusz scratched her toe. Patient reports about 2 weeks ago she squeezed on urea and had some purulent drainage from area. Patient is here today and states she thinks the area needs to be drained, is very sore and has been applying Prid salve to area twice daily for the past few days.The 5th toe of left foot has mild swelling with some redness, no fluctuation of tissue noted, reports no fevers. MD complaint: other (scratched by dog's toenail 4 weeks ago) Onset (ago): week(s) (4) Location: L foot (5th toe) Severity scale (1-10): 7 Quality: aching Treatments prior to arrival: attempted to drain pus at home and other (prid salve and cleansed with peroxide) Related Data Home Medications Medication Instructions Recorded Confirmed levonorgestrel 21 mcg/24 hours (8 1 device intrauterine ONCE 11/20/21 06/20/23 yrs) 52 mg intrauterine device (Mirena) famotidine 20 mg tablet 20 mg PO HS 06/20/23 06/20/23 Allergies Allergy/AdvReac Type Severity Reaction Status Date / Time No Known Allergies Allergy Verified 06/20/23 13:44 Review of Systems Review of Systems: CONSTITUTIONAL: Denies fever, chills, or sweats. CARDIOVASCULAR: Denies chest pain, palpitations, or edema. RESPIRATORY: Denies cough or dyspnea. SKIN: Reports scratched by dog toenail 4 weeks ago redness and swelling left 5th toe, no fluctuant tissue noted MUSCULOSKELETAL: Denies joint pain or myalgia. NEUROLOGIC: Denies headache, numbness, or weakness. All systems reviewed & are unremarkable except as noted in HPI and below PMFSH Past Medical History Medical History Abdominal pain, RLQ Acquired lymphedema Anxiety and depression Attention-deficit hyperactivity disorder, predominantly hyperactive type BMI 29.0-29.9,adult Cholelithiasis Chronic joint pain Dextroscoliosis of thoracolumbar spine Fracture of right heel surgical repair GERD without esophagitis Insomnia Jaw pain Lumbar spondylosis Mesenteric panniculitis Nausea and vomiting Psoriasis Tobacco abuse Umbilical hernia Wedge fracture of lumbar vertebra Surgical History Surgical History H/O foot surgery History of History of dilatation and curettage History of laparoscopy History of varicose vein stripping Family History Family History Grandparent Hypertension Family history of lung cancer Other Diabetes mellitus Family history of coronary artery disease Social History Social History Smoking packs per day: 0.5 Smoking cigarettes per day: 10.0 Smoking status: Current every day smoker Tobacco type: cigarettes Second hand tobacco smoke exposure: No Alcohol intake: current Alcohol use details: rarely Substance use: current Substance use type: marijuana Lack of Transportation: No Lack of Food: Sometimes True Current Housing: I Have Housing Concerned About Future Housing: No Difficulty Paying Gas/Electric Bills: YES Difficulty Paying for Meds: No Currently Unemployed: YES Education: Associate Degree Difficulty w/ Childcare or Family Care: No Living arrangements: with family Occupation/Education: unemployed Gender identity (if verbalized by the patient): Female Comments At time of signature, agree with nursing past medical, surgical, soci
== END 2023-06-20 14:22 | disposition home or self-care (01) ==
PROVIDERS: Emergency Provider Registered Nurse; PCP Family Medicine
DX: L03.032 Cellulitis of left toe (principal); F17.210 Nicotine dependence, cigarettes, uncomplicated; F12.90 Cannabis use, unspecified, uncomplicated; K21.9 Gastro-esophageal reflux disease without esophagitis; M47.816 Spondylosis without myelopathy or radiculopathy, lumbar region; M41.85 Other forms of scoliosis, thoracolumbar region; F41.9 Anxiety disorder, unspecified; F32.A Depression, unspecified
CPT/HCPCS: 99213; G0463

== ENCOUNTER 2023-07-09 09:37 | Outpatient (CLI) | payer OTHER, SELFPAY ==
--- NOTE | ~2023-07-09 | XR_ITS ---
XR foot LT min 3V DATE: 07/09/2023 10:01 INDICATION: Cutaneous abscess left fifth toe following dog bite TECHNIQUE: 4 views COMPARISON: None FINDINGS: Approximately 2.6 mm long very thin radiopaque foreign body is noted within the soft tissue s of the plantar aspect of the forefoot anterior to the space between the third and fourth metatarsal heads. No fracture or dislocation, periosteal reaction or bone destruction is detected. Plantar calcaneal enthesopathy. IMPRESSION: No periosteal reaction or bone destruction to suggest osteomyelitis Small radiopaque foreign body Plantar calcaneal enthesopathy Reviewed, dictated and finalized at location B. 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
== END 2023-07-09 09:38 | disposition home or self-care (01) ==
LOC: ANHIMG 09:39
PROVIDERS: PCP Family Medicine; Visit Provider Physician Assistant
DX: L02.612 Cutaneous abscess of left foot (principal); M77.52 Other enthesopathy of left foot and ankle; M79.5 Residual foreign body in soft tissue
CPT/HCPCS: 73630

== ENCOUNTER 2023-07-23 08:15 | Outpatient (RCR) | payer OTHER, SELFPAY ==
--- NOTE | 2023-05-13 11:14 | OTOPEVAL1 ---
Assessment and note entered by Talib Gonzalez, ONDINA/Rubio, CHT Evaluation Information Assessment Status Evaluation Subjective Information Initial injury occurred October 2021 when her dog ran into her hand and the hand and her fingers bent backwards. Pain persisted for a year and she sought treatment. She received an injection to the right ring finger flexor sheath around A1 magan. She reports her pain gets up to 7/10 with ADLs. Hand MRI 04/09/23 - Marrow edema of the fourth metatarsal shaft/ fourth metatarsal head without fracture or abnormal T1 marrow signal. Findings suggest bone contusion. - Surrounding soft tissue edema is compatible with posttraumatic change. Correlate for inflammatory process. - Small fourth metacarpal phalangeal joint effusion, nonspecific Assessment OT Clinical Summary Patient referred to OT with dx of right ring finger trigger finger and right lateral epicondylitis. Both of these conditions have been chronic, occurring for over a year. She has recently received injections to both and presents today to begin therapy. 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 Skilled OT indicated for use of modalities, manual therapy, HEP instruction/progression, orthotics PRN, and therapeutic exercise to facilitate reduced pain, improved strength, and return of dominant hand use. Plan of Care Interventions Therapeutic Exercise,Manual Therapy,Therapeutic Activities,Hot Pack/Cold Pack,Ultrasound,Paraffin OT Services Indicated Yes Treatment Frequency and 2x/week for 4 weeks Duration These treatments will address the objective and functional deficits as defined above. The patient will be advanced safely and appropriately in order for the patient to progress towards his/her prior level of function. Additional exercises will be introduced and as well as a comprehensive home exercise program upon discharge, if needed, ?to ensure carryover of functional gains achieved in the clinic. This treatment plan has been reviewed and agreement upon by the patient.
--- NOTE | 2023-05-20 10:11 | PCOTNOTE ---
Patient called & cancelled scheduled appointment this date due to being sick.
--- NOTE | 2023-06-06 11:50 | PCOTNOTE ---
Patient called & cancelled scheduled appointment this date due.
--- NOTE | 2023-06-12 11:32 | OTOPPROG ---
Assessment and note entered by Talib Gonzalez, OTR/Rubio, CHT Evaluation Information Assessment Status Progress Diagnosis (R) sagittal band sprain, (R) lateral epicondylitis Subjective Information Patient has been participating in hand therapy x4 weeks. Treatments have shifted from treating a trigger finger to a right ring finger sagittal band sprain. New splints have been fabricated this week - a relative extension orthosis as well as a hand based MCP extension immobilizer. Swelling around the dorsum of the MCP joint has reduced, but still persists. She is reporting less pain. Assessment OT Clinical Summary Patient referred to OT with dx of right ring finger trigger finger and right lateral epicondylitis. Diagnosis of the hand has changed to a sagittal band strain and splinting needs have changed to support the MCP joint. This plan just began this week. She is making excellent progress with the elbow. Having no pain with provocative testing today. Continued skilled OT indicated for use of modalities, manual therapy, HEP instruction /progression, orthotics, and therapeutic exercise to facilitate reduced pain, improved strength, and return of dominant hand use. Plan of Care Interventions Therapeutic Exercise,Manual Therapy,Therapeutic Activities,Hot Pack/Cold Pack,Ultrasound,Paraffin OT Services Indicated Yes Treatment Frequency and 1x/week for 4 weeks Duration These treatments will address the objective and functional deficits as defined above. The patient will be advanced safely and appropriately in order for the patient to progress towards his/her prior level of function. Additional exercises will be introduced and as well as a comprehensive home exercise program upon discharge, if needed, ?to ensure carryover of functional gains achieved in the clinic. This treatment plan has been reviewed and agreement upon by the patient.
--- NOTE | 2023-07-16 09:06 | OTOPPROG ---
Assessment and note entered by Talib Gonzalez, ONDINA/Rubio, CHT OT Progress Update 07/16/23 Diagnosis (R) sagittal band sprain Subjective Information Patient reports she has been compliant with splint wearing (6 weeks of immobilizing this week). She reports pain when the splint is off and when completing ROM. There continues to be a slight extension lag at the MCP joint with swelling over the dorsum of the hand. Patient is able to move the hand through functional ROM. No residual stiffness noted from immobilization. Patient has done well with maintaining her flexibility. We are continuing to restrict any gross gripping to reduce unnecessary strain on the sagittal band. Assessment OT Clinical Summary Patient referred to OT with dx of sagittal band strain of the right ring finger, which is a chronic injury. She presents today for reassessment. She has been immobilized in either a relative motion orthosis or MCP extension splint x6 weeks. She continues to have swelling and tenderness around the dorsum of the MCP joint. We are continuing to restrict a full fist to reduce sagittal band strain. Her flexibility continues to be WFL in the right hand and she is complaint with gentle ROM HEP. Continued skilled OT indicated for use of modalities, manual therapy, HEP instruction/progression, orthotics, and therapeutic exercise to facilitate reduced pain, improved strength, and return of dominant hand use . Plan of Care Interventions Therapeutic Exercise,Manual Therapy,Therapeutic Activities,Hot Pack/Cold Pack,Ultrasound,Paraffin OT Services Indicated Yes Treatment Frequency and 1x/week for 4 weeks Duration These treatments will address the objective and functional deficits as defined above. The patient will be advanced safely and appropriately in order for the patient to progress towards his/her prior level of function. Additional exercises will be introduced and as well as a comprehensive home exercise program upon discharge, if needed, ?to ensure carryover of functional gains achieved in the clinic. This treatment plan has been reviewed and agreement upon by the patient.
--- NOTE | 2023-07-23 08:50 | PCOTNOTE ---
Patient reports she followed up with JENNA Saucedo, yesterday. She states the hand is doing better and they are hopeful that conservative treatment will continue to be successful. Patient is scheduled to follow up with Sheryl in 6 weeks (09/02/23). Patient presenting today stating that she is independent with all materials. She has an excellent understanding of splint schedule, ROM, and what to avoid (MCP flexion). Plan to leave her chart open for the next 6 weeks to allow her to return for any splinting needs.
--- NOTE | 2023-08-05 11:38 | PCOTNOTE ---
This treatment is being continued on visit number [id number]. Please see documentation on both accounts to view progress. Completed interventions, outcomes, and problems have been marked as Inactive to facilitate the copying of the Care plan routine for recurring accounts.
== END 2023-08-05 08:08 | disposition home or self-care (01) ==
LOC: ANHOT 08:15
PROVIDERS: PCP Family Medicine; Visit Provider Physician Assistant Surgical
DX: M65.341 Trigger finger, right ring finger (principal); M77.11 Lateral epicondylitis, right elbow
CPT/HCPCS: 97018; 97110; 97140; 97166; 97763; L3913; L3933

== ENCOUNTER 2023-08-16 10:54 | Outpatient (CLI) | payer OTHER, SELFPAY ==
--- NOTE | ~2023-08-16 | CT_ITS ---
EXAMINATION: CT foot LT w con DATE: 08/16/2023 11:26 INDICATION: Chronic cutaneous abscess at the left fifth toe TECHNIQUE: High resolution computed tomography (CT) of the foot was performed with 100 mL Omnipaque-3 50 intravenous contrast. Additional sagittal and coronal reconstructions were performed. Automated ex posure control and iterative reconstruction technique were employed. The dose-length product was 456. 78 mGy-cm. COMPARISON: None FINDINGS: Bone alignment is normal. No fracture. Mild osteoarthritis at a few of the tarsal metatarsal joints. Moderate-sized plantar calcaneal spur and minimal enthesopathic ossification at the calcaneal inserti on of the distal Achilles tendon. No cortical erosions or periosteal reaction to suggest osteomyeliti s. There is an approximately 12 x 12 x 10 mm region of enhancement 4 x 3 x 3 mm low-attenuation regio n which appears to contact a shallow skin ulceration which likely represents the reported chronic sub cutaneous abscess. Again seen is a separate small linear metallic foreign body in the subcutaneous ti ssues plantar to the space between the heads of the third and fourth metatarsals without evident asso ciated abscess. IMPRESSION: 1. Small region of enhancing tissue surrounding a 4 x 3 x 3 mm low-attenuation small abscess or decom pressed abscess cavity essentially contacting a small shallow skin ulceration plantar to the fifth pr oximal phalanx. Reviewed, dictated and finalized at location A. IMPRESSION: 1. Small region of enhancing tissue surrounding a 4 x 3 x 3 mm low-attenuation small abscess or decompressed abscess cavity essentially contacting a small sha llow skin ulceration plantar to the fifth proximal phalanx.
--- NOTE | ~2023-08-16 | XR_ITS ---
XR knee LT 3V 08/16/2023 11:09 Indication: Left knee pain Procedure: 3 views left knee Comparison: No prior studies for comparison. Findings: There is mild-moderate tricompartment osteoarthritis of the left knee. No significant effus ion. No acute fracture or traumatic malalignment. Impression: 1: Mild-moderate tricompartment osteoarthritis. Reviewed, dictated and finalized at location A. Impression: 1: Mild-moderate tricompartment osteoarthritis.
== END 2023-08-16 10:55 | disposition home or self-care (01) ==
LOC: ANHIMG 10:56
PROVIDERS: PCP Family Medicine; Visit Provider Physician Assistant
DX: M79.672 Pain in left foot (principal); L02.612 Cutaneous abscess of left foot; M17.12 Unilateral primary osteoarthritis, left knee
CPT/HCPCS: 73562; 73701; Q9967

== ENCOUNTER 2023-09-08 09:38 | Outpatient (CLI) | payer OTHER, SELFPAY ==
[2023-09-08 10:08] LABS: Basophils Absolute Auto 0.1 K/mm3 (0.0-0.1); Basophils Percent Auto 1.9 % (0.2-1.2); Eosinophils Absolute Auto 0.1 K/mm3 (0-0.3); Eosinophils Percent Auto 1.6 % (0-4.4); Hematocrit 42.8 % (37.0-47.0); Hemoglobin 14.6 g/dL (12.0-15.0); Immature Granulocyte Absolute 0.01 K/mm3 (0.00-0.031); Immature Granulocyte Percent A 0.2 % (0-0.5); Lymphocytes Absolute Auto 1.64 K/mm3 (0.9-3.2); Lymphocytes Percent Auto 25.5 % (18.3-44.2); Mean Corpuscular HGB Conc 34.1 g/dl (32-36); Mean Corpuscular Hemoglobin 30.9 pg (26-34); Mean Corpuscular Volume 90.7 fl (80-100); Mean Platelet Volume 9.5 fl (7.4-10.4); Monocytes Absolute Auto 0.5 K/mm3 (0.1-0.6); Monocytes Percent Auto 7.2 % (2.6-8.5); Neutrophils Absolute Auto 4.1 K/mm3 (1.3-6.7); Neutrophils Percent Auto 63.6 % (45.5-73.1); Platelet Count Result 317 k/mm3 (150-375); Red Blood Count 4.72 M/mm3 (4.2-5.4); White Blood Count 6.4 K/mm3 (4.5-10.0)
[2023-09-08 10:19] LABS: Alanine Aminotransferase 11 U/L (6-35); Albumin Level 4.7 g/dL (3.5-5.1); Alkaline Phosphatase 125 U/L (38-126); Anion Gap 9 mmol/L (4-12); Aspartate Amino Transferase 19 U/L (14-36); Bilirubin,Total 0.5 mg/dL (0.2-1.3); Blood Urea Nitrogen 8 mg/dL (7-17); Calcium 9.9 mg/dL (8.4-10.2); Carbon Dioxide 21 mmol/L (22-30); Chloride 107 mmol/L (98-107); Estimated Glomerular Filt Rate > 60; Glucose 102 mg/dL (65-110); Sodium 137 mmol/L (137-145)
[2023-09-08 11:15] LABS: HIV 1/2 Ab P24 Ag Result Negative (Negative)
[2023-09-10 12:53] LABS: NIL 0.02 IU/mL; Quantiferon TB Plus, 1T NEGATIVE (NEGATIVE)
== END 2023-09-08 09:39 | disposition home or self-care (01) ==
PROVIDERS: PCP Family Medicine
DX: Z79.899 Other long term (current) drug therapy (principal)
CPT/HCPCS: 36415; 80053; 82248; 85025; 86480; 86703; G0432

== ENCOUNTER 2023-10-24 08:51 | Outpatient (RCR) | payer OTHER, SELFPAY ==
--- NOTE | 2023-08-05 11:39 | PCOTNOTE ---
The treatment documented on this account is a continuation of the treatment documented on visit number [id number]. Please see documentation on both accounts to view progress. The Plan of Care has been transitioned and updated within the new V#. I have addressed and agree with the discipline specific Problems, Interventions, and Goals for the current certification period. Completed interventions, outcomes, and problems have been marked as Inactive to facilitate the copying of the Care plan routine for recurring accounts.
--- NOTE | 2023-09-04 13:26 | OTOPDC ---
Assessment and note entered by Talib Gonzalez, OTR/L, CHT OT Discharge Notification 09/04/23 OT Clinical Summary Patient called to state that she is followed up with Sheryl and she is going to continue her home program, splinting, and taping on her own. She is to follow up again with the MD office in 6 weeks. Please send new orders if therapy is indicated again in the future. Thank you for this referral.
--- NOTE | 2023-10-24 09:56 | OTOPEVAL1 ---
Assessment and note entered by Talib Gonzalez, ONDINA/Rubio, CHT Evaluation Information 10/24/23 Diagnosis (R) sagittal band sprain Subjective Information Initial injury occurred October 2021 when her dog ran into her hand and the hand and her fingers bent backwards. She has been wearing an MCP support splint or mode straps since May 2023. She reports the last month she hasn't kept up with splinting as well. Returns today for fabrication of a new splint and to start therapy again. There continues to be a slight extension lag at the MCP joint with swelling over the dorsum of the hand. Patient is able to move the hand through functional ROM. No residual stiffness noted from immobilization. Patient has done well with maintaining her flexibility. We are continuing to restrict any gross gripping to reduce unnecessary strain on the sagittal band. She is reporting less pain. Reported Pain Level Pain Score 0: Self Report Additional Pain Score Comments No pain at rest. Patient reports her hand can get up to 1-2/10 at worst . Assessment OT Clinical Summary Patient referred to OT with dx of right ring MCP sagittal band sprain. She has been immobilizing with mode straps and is in need of a new hand based thermoplastic orthosis. Fabricated a custom orthosis today which supports the ring MCP joint well. Patient verbalizes excellent understanding of splint wearing schedule and to also utilize mode straps PRN/as pain allows. She is to sleep in the thermoplastic orthotic for maximum support. She continues to demonstrate intact ROM. Plan to follow up in 3 weeks to assess the splint and to assess readiness to progress therapy. Plan of Care Interventions Therapeutic Exercise,Ultrasound,Paraffin,Manual Therapy,Therapeutic Activities,Hot Pack/Cold Pack OT Services Indicated Yes Treatment Frequency and 0-1x/week for 4 visits Duration These treatments will address the objective and functional deficits as defined above. The patient will be advanced safely and appropriately in order for the patient to progress towards his/her prior level of function. Additional exercises will be introduced and as well as a comprehensive home exercise program upon discharge, if needed, ?to ensure carryover of functional gains achieved in the clinic. This treatment plan has been reviewed and agreement upon by the patient.
--- NOTE | 2023-10-24 09:57 | OPREHPOC ---
Outpatient Therapy Plan of Care This is a Multidisciplinary Plan of Care that may contain components documented by all disciplines (PT, OT, and ST.) OT Problem 1 OT Problem #1 Knowledge Deficit OT Goal 1 Goal 1. Patient to be independent with instructed materials. Target Visit 5 OT Problem 2 OT Problem #2 Pain OT Goal 1 Goal 1. Patient to report reduced right hand pain to 1/ 10 or less with ADLs. Target Visit 5 OT Problem 3 OT Problem #3 Impaired Strength OT Goal 1 Goal 1. Patient to be able to complete composite finger flexion with eason theraputty without pain x5 minutes. Target Visit 5 OT Problem 4 OT Problem #4 Impaired Range of Motion OT Goal 1 Goal 1. Patient to increase right ring finger MCP extension to neutral. Target Visit 5
--- NOTE | 2024-01-08 08:14 | OTOPDC ---
Assessment and note entered by Talib Gonzalez, ONDINA/Rubio, CHT OT Discharge Notification 01/08/24 OT Clinical Summary Patient attended her appointment initial on for a new splint. She cancelled her follow up appointments and has not returned for follow up. Discharging OT at this time. Please refer to evaluation summary report, dated 10/24/23, for full details. Thank you for this referral.
== END 2024-01-09 08:46 | disposition home or self-care (01) ==
LOC: ANHOT 08:51
PROVIDERS: PCP Family Medicine; Visit Provider Physician Assistant Surgical
DX: M65.341 Trigger finger, right ring finger (principal); M77.11 Lateral epicondylitis, right elbow; M79.642 Pain in left hand
CPT/HCPCS: 97110; 97165; L3913

== ENCOUNTER 2023-12-02 15:02 | Outpatient (CLI) | payer OTHER, SELFPAY ==
--- NOTE | ~2023-12-02 | XR_ITS ---
XR shoulder RT min 2V Ordering provider: Silvia Tsang APRN History: . M25.511 - Pain in right shoulder . Comparison: None. FINDINGS: BONES: No acute fracture or dislocation. JOINT SPACES: The acromioclavicular joint is normal. The glenohumeral joint is normal. SOFT TISSUES: Normal. IMPRESSION: No acute osseous abnormality right shoulder. Reviewed, dictated and finalized at location A.
--- NOTE | ~2023-12-02 | XR_ITS ---
XR_CERV2-3V_CR Ordering provider: Silvia Tsang APRN History: . M25.511 - Pain in right shoulder . Comparison: None. FINDINGS: VERTEBRAL BODIES: Normal height and alignment. No visible fracture or subluxation. The dens is intact . Degenerative changes of the spine. DISK SPACES: Narrowing of the disc C5-C6 and C6-C7. Multilevel uncovertebral joint osteoarthritic christy nges. PARASPINOUS SOFT TISSUES: No prevertebral soft tissue swelling. IMPRESSION: No acute osseous abnormality cervical spine. Reviewed, dictated and finalized at location A.
== END 2023-12-02 15:03 | disposition home or self-care (01) ==
PROVIDERS: PCP Family Medicine; Referring Provider Orthopaedic Surgery; Visit Provider Nurse Practitioner Adult Health
DX: R20.2 Paresthesia of skin (principal); R20.0 Anesthesia of skin; M25.511 Pain in right shoulder
CPT/HCPCS: 72040; 73030

== ENCOUNTER 2024-03-08 09:45 | Outpatient (RCR) | payer OTHER, SELFPAY ==
--- NOTE | 2024-02-06 09:05 | OPREHPOC ---
Outpatient Therapy Plan of Care This is a Multidisciplinary Plan of Care that may contain components documented by all disciplines (PT, OT, and ST.) PT Problem 1 PT Problem #1 Knowledge Deficit PT Goal 1 Goal / Goal Update *indep with HEP * correct shoulder posture with exercises Target Visit 8 PT Problem 2 PT Problem #2 Pain PT Goal 1 Goal / Goal Update 1* decrease pain rating to 4/10 at worst 2* self assessment Quick DASH rating of 55% limitation in activity 3* pt report sleeping tolerance of 4 hours at time Target Visit 8 PT Problem 3 PT Problem #3 Impaired Flexibility PT Goal 1 Goal / Goal Update increase cervical rotation to improve ability for driving and self care 1* active to R 50' 2* active to L 65' no pain increase with 3* rotation R 4* rotation L PT Problem 4 PT Problem #4 Impaired Strength PT Goal 1 Goal / Goal Update 1* in standing, correct shoulder posture 2* pt perform scapular strengthening exercises x 20 reps Target Visit 8
--- NOTE | 2024-02-06 09:05 | PTOPEVAL1 ---
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 Self assessment Quick DASH 73% limitation in activity level. She is R hand dominant. Sleeping and activity tolerance are decreased due to pain. With the evaluation: she has pain increase with cervical rotation to R, into posterior shoulder and upper anterior trunk; also have R elbow pain with extension; R shoulder and elbow ranges are WNL; decreased cervical rotation ROM to R and L. Posture is rounded shoulders and L shoulder elevated. Skilled PT services are indicated for treatment of cervical pain, radicular into R shoulder: modalities to decrease pain, therapeutic exercises to improve scapular strength, posture and stability to upper trunk. Education for HEP, posture and pain control. Plan of Care Interventions Electrical Stimulation,Hot Pack/Cold Pack,Manual Therapy,Mechanical Traction,Neuro Re-education, Patient/Caregiver Education,Therapeutic Activities, Therapeutic Exercise,Ultrasound,Other Other Interventions taping, dry needling PT Services Indicated Yes Treatment Frequency and 1-2x/wk for 8 visits Duration These treatments will address the objective and functional deficits as defined above. The patient will be advanced safely and appropriately in order for the patient to progress towards his/her prior level of function. Additional exercises will be introduced and as well as a comprehensive home exercise program upon discharge, if needed, ?to ensure carryover of functional gains achieved in the clinic. This treatment plan has been reviewed and agreement upon by the patient.
--- NOTE | 2024-02-24 13:38 | PCPTNOTE ---
No call no show, reason unknown. FRANCISCA.
--- NOTE | 2024-02-26 08:14 | PCPTNOTE ---
Addendum entered by Jaylan Martinez, ABIGAIL 02/26/24 08:34: Pt called ~20 minutes after her appointment to cancel due to a family emergency. Original Note: Pt did not arrive for her 0800 appointment today (02/26/24)
--- NOTE | 2024-03-10 15:05 | PCPTNOTE ---
pt called and canceled today's reeval due to family emergency.
--- NOTE | 2024-03-26 14:24 | PTOPDC ---
Assessment and note entered by Ashley Tobar, PT Discharge Report Assessment Status Discharge - Pt Not Present ICD-10 Condition Codes (PT) M54.13,M25.521,M25.522 Other ICD-10 Condition Codes ( M75.41 R shoulder impingement PT) Onset May 2023 Subjective Information pt was not seen this date. Assessment PT Clinical Summary Lory has received 5 PT sessions, from Feb 05 to Mar 08. She did not show for 2 and called/ canceled 1 appointment. She will be discharged from PT. The goals were not addressed. Plan of Care PT Services Indicated No
== END 2024-03-26 16:38 | disposition home or self-care (01) ==
LOC: ANHPT 09:45
PROVIDERS: PCP Family Medicine; Visit Provider Orthopaedic Surgery
DX: M19.021 Primary osteoarthritis, right elbow (principal); M75.41 Impingement syndrome of right shoulder; M19.022 Primary osteoarthritis, left elbow; L40.50 Arthropathic psoriasis, unspecified
CPT/HCPCS: 97014; 97110; 97140; 97162; 97530; G0283

== ENCOUNTER 2024-04-15 13:33 | Outpatient (CLI) | payer OTHER, SELFPAY ==
--- NOTE | ~2024-04-15 | XR_ITS ---
EXAMINATION: XR hip BI 2V w AP pelvis DATE: 04/15/2024 14:00 INDICATION: Bilateral primary osteoarthritis of hips. TECHNIQUE: An anteroposterior view of the pelvis and 2 views of each hip were obtained. COMPARISON: Lumbar spine MRI 02/21/2022 FINDINGS: There is lumbar dextroscoliosis and severe spondylosis. No fracture. There is mild osteoart hritis of the hips. There is an intrauterine device in expected position. IMPRESSION: 1. Mild osteoarthritis of the hips. Reviewed, dictated and finalized at location A. OR NET DEVELOPER
== END 2024-04-15 13:34 | disposition home or self-care (01) ==
LOC: ANHIMG 13:37
PROVIDERS: PCP Family Medicine
DX: M16.0 Bilateral primary osteoarthritis of hip (principal)
CPT/HCPCS: 73521

== ENCOUNTER 2025-02-01 09:06 | Outpatient (CLI) | payer OTHER, SELFPAY ==
--- NOTE | ~2025-02-01 | XR_ITS ---
EXAMINATION: XR elbow RT min 3V, 02/01/2025 9:20 CDT HISTORY: M19.021 - Primary osteoarthritis, right elbow COMPARISON: No comparisons available. Findings: No acute fracture or malalignment. No significant degenerative changes. Soft tissues unremarkable. Impression: No acute fracture or malalignment. Reviewed, dictated and finalized at location A. Impression: No acute fracture or malalignment.
--- NOTE | ~2025-02-01 | XR_ITS ---
EXAMINATION: XR elbow LT min 3V, 02/01/2025 9:20 CDT HISTORY: M19.022 - Primary osteoarthritis, left elbow COMPARISON: No comparisons available. Findings: No acute fracture or malalignment. No significant degenerative changes. Soft tissues unremarkable. Impression: No acute fracture or malalignment. Reviewed, dictated and finalized at location A. Impression: No acute fracture or malalignment.
--- OUTSIDE RECORDS SUMMARY | 2025-02-01 09:52 | XMS_ITS | Clinical Summary ---
Author Organization [facility] Address [address] [place] [address] Care Team Providers Care Masking Machine Feeder Name Role Phone Mian Mathews MD Primary Care Provider [phone] Mian Mathews MD Unavailable [phone] Allergies Active Allergy Reactions Criticality Noted Date Comments Oxycodone-Acetaminophen Unknown 04/15/2016 Face itches Medications TiZANidine (ZANAFLEX) 4 mg capsule Take 4 mg by mouth 3 (three) times a day Active furosemide (LASIX) 20 mg tablet Take 20 mg by mouth 2 (two) times a day Active citalopram (CeleXA) 40 mg tablet Take 40 mg by mouth daily Active dextroamphetami ne-amphetamine (ADDERALL) 15 mg tablet Active buPROPion XL (WELLBUTRIN XL) 150 mg 24 hr tablet 1 Active calcipotriene (DOVONOX) 0.005 % cream APPLY EXTERNALLY TO THE AFFECTED AREA ONCE DAILY. RUB IN GENTLY AND COMPLETELY 1 Active clobetasoL (TEMOVATE) 0.05 % cream APPLY EXTERNALLY TO THE AFFECTED AREA DAILY 1 Active cyclobenzaprine (FLEXERIL) 10 mg tablet TAKE 1 TABLET BY MOUTH THREE TIMES DAILY NEEDED FOR MUSCLE SPASM 1 Active gabapentin (NEURONTIN) 300 mg capsule Take 300 mg by mouth nightly 1 Active zolpidem (AMBIEN) 5 mg tablet Take 5 mg by mouth nightly at bedtime. 1 Active nabumetone (RELAFEN) 500 mg tablet Take 500 mg by mouth 2 (two) times a day Active lisdexamfetamin e (VYVANSE) 20 mg capsule Take 20 mg by mouth every morning Active Active Problems Problem Noted Date Diagnosed Date Lymphedema of both lower extremities 11/21/2020 Assessment & Plan (11/21/2020 1:25 PM CDT): Have recommended pneumatic compression pumps to help control swelling in add to compression regimen. Follow-up p.r.n.. Varicose veins of bilateral lower extremities wi th pain 08/10/2020 Assessment & Plan (11/21/2020 1:25 PM CDT): Patient has scattered spider veins and small varicosities throughout the lower extremities with prior great saphenous vein stripping. I did not recommend any further surgical intervention. Recommended continuing to wear knee-high compression therapy of which she has been intermittently compliant. Would also benefit from from pneumatic compression stockings secondary to underlying lymphedema. Assessment & Plan (08/18/2020 4:38 PM CDT): Impression: Painful varicose veins of both lower extremities with history of bilateral great saphenous vein stripping in the distal past. She has recurrent bulky varicosities scattered throughout both lower extremities. She is not utilize any compression therapy on a consistent basis. She also has a associated leg heaviness, fatigue. Plan: I recommended conservative treatment currently over surgical treatment. I recommend daily compression regimen consisting of medical grade knee-high compression stockings 20 30 mm mercury in strength with leg elevation p.r.n.. Patient follow-up in 6-8 weeks for re-evaluation. If her symptoms are not improved I would recommend continuing with surgical treatment including stab phlebectomies of her painful varicose veins. The patient is understanding and wishes to proceed with the current non conservative treatment recommendations. Assessment & Plan (08/10/2020 1:40 PM CDT): Patient has longstanding bilateral lower extremity painful varicose veins that have now become disabling affecting her ability to work and sleep. She has been compliant with compression therapy for over 3 months with minimal relief. Will obtain lower extremity venous reflux study follow-up 2 weeks. Continue conservative measures. Intraductal papilloma of breast 08/03/2020 Surgical History Surgery Date Site/Laterality Comments VARICOSE VEIN SURGERY Bilateral 20 YEARS AGO Medical History Medical History Date Comments ADHD (attention deficit hyperactivity disorder) Anxiety and depression Family History Medical History Relation Name Comments Coronary artery disease Other Diabetes Other Hypertension Other Lung cancer Other Relation Name Status Comments Other Social History Tobacco Use Types Packs/Day Years Used Date Smoking Tobacco: Every Day Comments Unknown Sex and Gender Information Value Date Recorded Sex Assigned at Not on file Legal Sex Female 11:12 PM SERVICE PERSON Gender Identity Not on file Sexual Orientation Not on file Obstetrics History Last Filed Vital Signs Vital Sign Reading Time Taken Comments Blood Pressure 140/90 11/15/2020 9:07 AM CDT Pulse 87 11/15/2020 9:07 AM CDT Temperature - - Respiratory Rate - - Oxygen Saturation - - Inhaled Oxygen Concentration - - Weight 99.8 kg (220 lb) 11/15/2020 9:07 AM CDT Height 170.2 cm (5' 7) 11/15/2020 9:07 AM CDT Body Mass Index 34.46 11/15/2020 9:07 AM CDT Plan of Treatment Not on file Insurance [address] [employer] Member Subscriber Plan / Payer (Ef fective 2020-Present) Name:Lory Velázquez Relation to Subscriber:Spouse Name:LEMATAMMY Rubio Date of :1978 (Home) Address: [address] [place] [address] [place] [address] Payer ID:[id number] (NAIC) Type:REYNA GOMEZ Address: [facility] [id number] [address] Care Teams Masking Machine Feeder Relationship Specialty Start Date End Date Mian Mathews MD PCP - General 08/15/20 Mian Mathews MD Family Medicine 08/15/20
== END 2025-02-01 09:07 | disposition home or self-care (01) ==
PROVIDERS: PCP Family Medicine; Visit Provider Orthopaedic Surgery
DX: M19.021 Primary osteoarthritis, right elbow (principal); M19.022 Primary osteoarthritis, left elbow
CPT/HCPCS: 73080

== ENCOUNTER 2025-02-02 15:23 | Outpatient (CLI) | payer OTHER, SELFPAY ==
--- NOTE | ~2025-02-02 | XR_ITS ---
EXAMINATION: XR foot RT min 3V, 02/02/2025 15:32 CDT HISTORY: M79.671 - Pain in right foot. PAST SX FOR HEEL FX COMPARISON: No comparisons available. Findings: Postsurgical changes with plates and screws fixating the calcaneus with healing fractures. No significant degenerative changes. Soft tissues unremarkable. Impression: Postsurgical changes Reviewed, dictated and finalized at location A. Impression: Postsurgical changes
--- OUTSIDE RECORDS SUMMARY | 2025-02-02 15:46 | XMS_ITS | Clinical Summary ---
Author Organization [facility] Address [address] [place] [address] Care Team Providers Care Supervisor Glycerin Name Role Phone Mian Mathews MD Primary Care Provider [phone] Source Comments [facility],non-owned Affiliates and Associated Physician Practices is amultiple site organization consisting of ambulatory clinics and hospital sitesin [place], [place], [place] and [place]. This disclosure is being madepursuant to the Care Everywhere program and may not contain all information available regarding this patient. Last updated 18.[facility] Allergies Active Allergy Reactions Criticality Noted Date Comments Oxycodone-Acetaminophen 04/15/2016 Face itches Medications * Be aware that medications may not be up to date on this document. Alwaysverify current medications with the patient. zolpidem (AMBIEN) 5 MG tablet Take 5 mg by mouth nightly as needed for Insomnia Active amphetamine-dex troamphetamine (ADDERALL) 15 MG tablet Take 15 mg by mouth every morning Active citalopram (CELEXA) 40 MG tablet Take 40 mg by mouth once daily Active Other Used for heartburn Active HYDROcodone-archie taminophen (NORCO) 5-325 MG tablet Take 1 Tab by mouth every 4 hours as needed for Pain 30 Tab 6 Active Active Problems Problem Noted Date Diagnosed Date Intraductal papilloma of breast Social History Tobacco Use Types Packs/Day Years Used Date Smoking Tobacco: Every Day Cigarettes Tobacco Cessation:Ready to Q uit: No Alcohol Use Standard Drinks/Week Comments Yes 0 (1 standard drink = 0.6 oz pur e alcohol) rare Comments No Sex and Gender Information Value Date Recorded Sex Assigned at Not on file Legal Sex Female 2:39 PM CDT Gender Identity Not on file Sexual Orientation Not on file Last Filed Vital Signs Vital Sign Reading Time Taken Comments Blood Pressure 136/84 03/10/2017 10:18 AM CDT Pulse 64 03/10/2017 10:18 AM CDT Temperature 36.7 C (98.1 F) 03/10/2017 10:18 AM CDT Respiratory Rate 15 04/16/2016 3:30 PM CLINICAL TRIAL LEADER Oxygen Saturation 99% 03/10/2017 10:18 AM CDT Inhaled Oxygen Concentration - - Weight 99.8 kg (220 lb) 06/18/2024 7:03 AM CLINICAL TRIAL LEADER Height 170.2 cm (5' 7) 06/18/2024 7:03 AM CLINICAL TRIAL LEADER Body Mass Index 34.46 06/18/2024 7:03 AM CLINICAL TRIAL LEADER Plan of Treatment Health Maintenance Due Date Last Done Comments COLOGUARD (AGES 45-75) - COLON CA SCREENING 1972 COLON MONITORING 1972 COLONOSCOPY - COLON CA SCREENING 1972 CT COLONOGRAPHY - COLON CA SCREENING 1972 Colorectal Cancer Screening 1972 FIT - COLON CA SCREENING 1972 FLEX SIG - COLON CA SCREENING 1972 LIPID TESTING 1972 DTAP/TDAP/TD VACCINES (1 - Tdap) 02/27/1991 HEPATITIS B VACCINE (1 of 3 - 19+ 3-dose series) 02/27/1991 PNEUMOCOCCAL VACCINE 50+ (1 of 2 - PCV) 02/27/1991 PAP SMEAR 02/27/1993 ZOSTER VACCINE (1 of 2) 02/27/2022 DEPRESSION SCREENING 05/26/2024 COVID-19 VACCINE (1 - season) 2025 INFLUENZA VACCINE (#1) 2025 MAMMOGRAM 07/22/2025 07/22/2023, 06/27, 04/14/2019, Additional history exists HIV SCREENING Completed 12/03/2018 HEPATITIS C SCREENING Completed 10/06/2020 , 12/03/2018, 12/03/2018 HIB VACCINE Aged Out No longer eligi ble based on patient's age to complete this topic HPV VACCINE Aged Out No longer eligi ble based on patient's age to complete this topic MENINGOCOCCAL (Group B) VACCINE SHARED DECISION-MAKING Aged Out No longer eligible based on patient's age to complete this topic MENINGOCOCCAL GROUPS A/C/Y/W VACCINE Aged Out No longer eligible based on patient's age to complete this topic Procedures Procedure Name Priority Date/Time Associated Diagnosis Comments MAMMO BILAT SCREENING W JANELL Routine 07/22/2023 12:20 PM CLINICAL TRIAL LEADER Encounter for screening mammogram for malignant neoplasm of breast from Last 3 Months or Most Recently Relevant to Health Maintenance Results * MAMMO BILAT SCREENING W JANELL (07/22/2023 12:20 PM CLINICAL TRIAL LEADER) Anatomical Region Laterality Modality Breast Bilateral Mammography 07/22/2023 1:25 PM CLINICAL TRIAL LEADER Impressions 07/22/2023 3:11 PM CLINICAL TRIAL LEADER : 1. A 0.8 cm oval density mass in the lower central slightly outer right breast is indeterminate and warrants further evaluation. 2. No mammographic evidence of left breast malignancy. RECOMMENDATION: Diagnostic right mammogram. If indicated at that time, right breast ultrasound will be performed. Patient will be contacted and scheduled to return for the additional imaging. OVERALL ASSESSMENT: BI-RADS CATEGORY 0: INCOMPLETE: NEED ADDITIONAL IMAGING EVALUATION. Report reviewed and dictated by Osman Sosa MD (hvac residential service technician) with the assistance of Moe Espinoza DO (hvac residential service technician). I, Angela Camacho DO have personally reviewed and interpreted this examination/study. > Interpreting Provider: Angela Camacho DO on 07/22/2023 3:11 PM Narrative 07/22/2023 3:11 PM CLINICAL TRIAL LEADER EXAMINATIONS: BILATERAL DIGITAL SCREENING MAMMOGRAM AND BILATERAL BREAST TOMOSYNTHESIS WITH CAD LOCATION: [facility] EXAM DATE: 07/22/2023 HISTORY: Screening. Personal history of prior right breast biopsy yielding fibroadenoma and prior left breast excisional biopsy for papilloma. RISK ASSESSMENT CALCULATION: Of note, a formal risk assessment was not performed today as assessment tablets are currently unavailable due to pending upgrade. COMPARISON: Screening mammogram from 04/14/2019, 03/11/2018, 03/10/2017. TECHNIQUE: Tomosynthesis (3D) and reconstructed synthetic 2-D images acquired and reviewed in the bilateral craniocaudal, mediolateral oblique, and exaggerated craniocaudal projections. A total of 6 images obtained. Computer-aided detection (CAD) was utilized. BREAST PARENCHYMAL COMPOSITION: Category C: The breasts are heterogeneously dense which may obscure small masses. FINDINGS: Right breast: There is a 0.8 cm oval equal density mass in the lower central to slightly outer right breast, posterior depth, located approximately 8 cm from the nipple on the CC view. A biopsy clip is redemonstrated in the medial retromammary fat adjacent to the pectoralis muscle. No suspicious ossifications or evidence of architectural distortion. Otherwise, no significant change compared to the prior. Left breast: No mammographic evidence of malignancy. No significant change compared to the prior. Bronwyn May MD MAMMO ORDERABLES Final Res ult from Last 3 Months or Most Recently Relevant to Health Maintenance Insurance [facility] Care Teams Supervisor Glycerin Relationship Specialty Start Date End Date Mian Mathews MD [address] [place] [address] PCP - General Family Medicine 04/16/16
--- OUTSIDE RECORDS SUMMARY | 2025-02-02 15:46 | XMS_ITS | Clinical Summary ---
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
== END 2025-02-02 15:24 | disposition home or self-care (01) ==
PROVIDERS: PCP Family Medicine; Visit Provider Physician Assistant Medical
DX: M79.671 Pain in right foot (principal); G89.29 Other chronic pain
CPT/HCPCS: 73630

== ENCOUNTER 2025-02-22 08:12 | Emergency (ER) | payer OTHER, SELFPAY ==
[2025-02-22] VITALS (12 sets, daily range): BP systolic 108–148; BP diastolic 67–97; PULSE 62; RESP 20; TEMP 36.5; O2SAT 97–100
--- NOTE | ~2025-02-22 | CT_ITS ---
Lory Velázquez EXAMINATION: CT abdomen pelvis w con COMPARISON: None HISTORY: ab pain, SBO TECHNIQUE: Axial images were obtained through the abdomen, pelvis post administration of IV contrast. Oral contrast was also administered. Coronal reconstruction images were obtained from the axial views. CT scan performed using dose optimization techniques including the following automated exposure control; adjustment of mA and/or kV; use of iterative reconstruction technique. Automatic exposure control was used to reduce radiation dose. Permanent radiation dose record is archived to PACS. FINDINGS: CT abdomen: LUNG BASES: Lung bases demonstrate scattered calcified granulomas. LIVER: Portal vein patent. No intrahepatic biliary duct dilatation. SPLEEN: Calcified splenic granulomas.. KIDNEYS: Right Kidney: Right kidney subcentimeter probable renal cysts. Left Kidney: Unremarkable. No calculi. No hydronephrosis ADRENAL GLANDS: Unremarkable. PANCREAS: Mild atrophy of the pancreas. GALLBLADDER/BILIARY: Cholelithiasis. STOMACH AND ESOPHAGUS: The stomach appears decompressed. BOWEL/MESENTERY: Mild hyperemia of the descending colon with thickening of the bowel in this location but no perforation or abscess. Remaining large bowel demonstrates moderate fecal content. Appendix normal. Remaining mesentery normal. No dilated small bowel loops. ADENOPATHY/RETROPERITONEUM: No lymphadenopathy. AORTA/VASCULATURE: Normal caliber aorta. FREE FLUID OR FREE AIR: No free fluid.. CT pelvis: SOLID ORGANS/REPRODUCTIVE: The uterus appears enlarged which may relate to fibroid change incompletely evaluated, outpatient pelvic ultrasound recommended. BLADDER: The bladder is decompressed. OSSEOUS STRUCTURES: No acute osseous abnormality.No suspicious lesions. OVERLYING SOFT TISSUES: Unremarkable. IMPRESSION: 1. Colitis of the descending colon detailed above. No perforation or abscess. 2. Incidental findings above Reviewed, dictated and finalized at location P.
--- OUTSIDE RECORDS SUMMARY | 2025-02-22 08:21 | XMS_ITS | Clinical Summary ---
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 Gender Identity Not on file Sexual Orientation [...] Plan of Treatment Not on file Insurance [address] [employer] Member Subscriber Plan / Payer (Ef fective 2020-Present) Name:Lory Velázquez Relation to Subscriber:Spouse Name:LEMATAMMY Rubio Date of :1978 (Home) Address: [address] [place] [address] [place] [address] Payer ID:[id number] (NAIC) Type:REYNA GOMEZ Address: [facility] [address] Care Teams Survey Statistician Relationship Specialty Start Date End Date Mian Mathews MD PCP - General 08/15/20 Mian Mathews MD Family Medicine 08/15/20
--- OUTSIDE RECORDS SUMMARY | 2025-02-22 08:21 | XMS_ITS | Clinical Summary ---
Author Organization [facility] Address [address] [place] [address] Care Team Providers Care Airplane Technician Name Role Phone Mian Mathews MD Primary Care Provider [phone] Source Comments [facility],non-owned Affiliates and Associated Physician Practices is amultiple site organization consisting of ambulatory clinics and hospital sitesin [place], [place], [place] and [place]. This disclosure is being madepursuant to the Care Everywhere program and may not contain all information available regarding this patient. Last updated 18.[facility] Allergies Active Allergy Reactions Criticality Noted Date [...] CDT Respiratory Rate 15 04/16/2016 3:30 PM ENGINEERING PROGRAM ANALYST Oxygen Saturation 99% 03/10/2017 10:18 AM CDT Inhaled Oxygen Concentration - - Weight 99.8 kg (220 lb) 06/18/2024 7:03 AM ENGINEERING PROGRAM ANALYST Height 170.2 cm (5' 7) 06/18/2024 7:03 AM ENGINEERING PROGRAM ANALYST Body Mass Index 34.46 06/18/2024 7:03 AM ENGINEERING PROGRAM ANALYST Plan of Treatment Health Maintenance Due Date [...] SCREENING W JANELL Routine 07/22/2023 12:20 PM ENGINEERING PROGRAM ANALYST Encounter for screening mammogram for malignant neoplasm of breast from Last 3 Months or Most Recently Relevant to Health Maintenance Results * MAMMO BILAT SCREENING W JANELL (07/22/2023 12:20 PM ENGINEERING PROGRAM ANALYST) Anatomical Region Laterality Modality Breast Bilateral Mammography 07/22/2023 1:25 PM ENGINEERING PROGRAM ANALYST Impressions 07/22/2023 3:11 PM ENGINEERING PROGRAM ANALYST : 1. A 0.8 cm oval density [...] reviewed and dictated by Osman Sosa MD (vice president of nursing) with the assistance of Moe Espinoza DO (vice president of nursing). I, Angela Camacho DO have personally reviewed and interpreted this examination/study. > Interpreting Provider: Angela Camacho DO on 07/22/2023 3:11 PM Narrative 07/22/2023 3:11 PM ENGINEERING PROGRAM ANALYST EXAMINATIONS: BILATERAL DIGITAL SCREENING MAMMOGRAM AND BILATERAL BREAST TOMOSYNTHESIS WITH CAD LOCATION: [facility] EXAM DATE: 07/22/2023 HISTORY: Screening. Personal history [...] Most Recently Relevant to Health Maintenance Insurance [facility] Care Teams Airplane Technician Relationship Specialty Start Date End Date Mian Mathews MD [address] [place] [address] PCP - General Family Medicine 04/16/16
--- NOTE | 2025-02-22 08:41 | ED_ITS ---
HPI - General Adult General Chief complaint: Abdominal Pain Stated complaint: I vomited poop Time Seen by Provider: 02/22/25 08:15 History of Present Illness HPI narrative: 54-year-old female presents to the emergency department for evaluation for complaint diffuse abdominal pain, nausea vomiting and constipation. Patient states she suspected she had feculent emesis this morning. Patient reports she was attempting a bowel movement felt constipated, patient had onset of nausea symptoms and then patient had some feculent emesis. Patient is not on any GLP 1 inhibitors. Patient has no history of bowel obstruction. Patient does have history of x2. Related Data Home Medications ?Medication ?Instructions ?Recorded ?Confirmed ?Last Taken ?Type cholecalciferol (vitamin D3) 10 10 mcg PO DAILY 02/16/25 Unknown History mcg (400 unit) capsule Allergies Allergy/AdvReac Type Severity Reaction Status Date / Time acetaminophen (From Percocet) Allergy Mild Rash Verified 02/22/25 09:16 oxycodone (From Percocet) Allergy Mild Rash Verified 02/22/25 09:16 Review of Systems 2 Review of Systems: All systems reviewed & are unremarkable except as noted in HPI and below PMFSH Past Medical History Medical History (Updated 02/22/25 @ 09:50 by Juvencio Welsh MD) Plantar fasciitis, right Arthritis of right subtalar joint Microhematuria Cervical muscle pain Numbness and tingling of right arm Right shoulder pain History of bruising easily Abdominal pain, RLQ Nausea and vomiting Jaw pain Mesenteric panniculitis Umbilical hernia Cholelithiasis Dextroscoliosis of thoracolumbar spine Wedge fracture of lumbar vertebra Lumbar spondylosis GERD without esophagitis Chronic joint pain Fracture of right heel surgical repair Acquired lymphedema Tobacco abuse Insomnia Anxiety and depression Attention-deficit hyperactivity disorder, predominantly hyperactive type Psoriasis Surgical History Surgical History H/O foot surgery History of dilatation and curettage History of laparoscopy History of History of varicose vein stripping Family History Family History Grandparent Hypertension Family history of lung cancer Other Diabetes mellitus Family history of coronary artery disease Social History Social History Smoking packs per day: 0.5 Smoking cigarettes per day: 10.0 Smoking status: Current every day smoker Tobacco type: cigarettes Second hand tobacco smoke exposure: No Alcohol intake: current Alcohol use details: rarely Substance use: current Substance use type: marijuana Do You Feel Safe in your Home?: Yes Lack of Transportation: No Lack of Food: Sometimes True Current Housing: I Have Housing Concerned About Future Housing: No Difficulty Paying Gas/Electric Bills: YES Difficulty Paying for Meds: No Currently Unemployed: YES Education: Associate Degree Difficulty w/ Childcare or Family Care: No Living arrangements: with family Occupation/Education: unemployed Gender identity (if verbalized by the patient): Female Exam 2 Narrative: APPEARANCE: Well appearing, no pain, no distress, well-nourished. HEAD: normocephalic, atraumatic. EYES: PERRLA/EOMI, conjunctivae clear. NOSE: Normal no drainage EARS:TMS clear with good light reflex. THROAT: Pharynx clear, no exudate. NECK: Supple. No adenopathy, no masses. RESPIRATORY: Airway patent, respirations nonlabored. Clear to auscultation bilaterally, no rales, rhonchi, wheezing. CARDIOVASCULAR: Regular rate and rhythm without murmurs rubs or gallops. ABDOMINAL: Diffuse abdominal tenderness to palpation MUSCULOSKELETAL: Moves all extremities. Strength/ROM intact, No edema, No calf tenderness. NEURO: Alert. Cranial nerves II through XII intact. Grossly intact SKIN: Warm, dry. Normal Color Course Vital Signs Vital signs: Vital Signs Temperature 97.7 F 02/22/25 08:24 Pulse Rate 62 02/22/25 08:24 Respiratory Rate 20 02/22/25 08:24 Blood Pressure 148/88 H 02/22/25 08:24 Pulse Oximetry 99 02/22/25 08:24 Oxygen Delivery Room Air 02/22/25 08:24 Temperature 97.7 F 02/22/25 08:24 Pulse Rate 62 02/22/25 08:24 Respiratory Rate 20 02/22/25 08:24 Blood Pressure 131/79 02/22/25 10:01 Pulse Oximetry 97 02/22/25 10:18 Oxygen Delivery Room Air 02/22/25 08:24 Medical Decision Making [facility] Narrative Medical decision making narrative: 54-year-old female presents to the emergency department for evaluation for abdominal pain and nausea and vomiting. Patient is afebrile but does have a leukocytosis of 13.6 hemoglobin of 15.2. INR 0.9. Patient did have a lactic acid of 2.4 but patient was treated with 2 L of lactated Ringer's. Lipase was not elevated. UA was negative for infection. CT scan does show evidence of colitis with no evidence of abscess perforation or obstruction. Patient was started on Augmentin in the emergency department for colitis. Patient was also advised to follow a clear liquid diet for the next few days. Patient was also provided Zofran for nausea control. Differential Diagnosis Differential Diagnosis: Colitis, diverticulitis, appendicitis, bowel obstruction Vital Signs Vital Signs: Vital Signs Temperature 97.7 F 02/22/25 08:24 Pulse Rate 62 02/22/25 08:24 Respiratory Rate 20 02/22/25 08:24 Blood Pressure 148/88 H 02/22/25 08:24 Pulse Oximetry 99 02/22/25 08:24 Oxygen Delivery Room Air 02/22/25 08:24 Temperature 97.7 F 02/22/25 08:24 Pulse Rate 62 02/22/25 08:24 Respiratory Rate 20 02/22/25 08:24 Blood Pressure 131/79 02/22/25 10:01 Pulse Oximetry 97 02/22/25 10:18 Oxygen Delivery Room Air 02/22/25 08:24 Lab Data Lab results reviewed: Yes I reviewed the patient's lab results. 02/22/25 08:33 02/22/25 08:33 Labs: Lab Results 02/22/25 02/22/25 Range/Units 08:33 08:36 WBC 13.6 H (4.5-10.0) K/mm3 RBC 5.12 (4.2-5.4) M/mm3 Hgb 15.2 H (12.0-15.0) g/dL Hct 45.4 (37.0-47.0) % MCV 88.7 (80-100) fl MCH 29.7 (26-34) pg MCHC 33.5 (32-36) g/dl RDW 12.3 (11.5-14.5) % Plt Count 330 (150-375) k/mm3 MPV 9.4 (7.4-10.4) fl Immature Gran % (Auto) 0.4 (0-0.5) % Neut % (Auto) 80.1 H (45.5-73.1) % Lymph % (Auto) 10.7 L (18.3-44.2) % O[place]ana % (Auto) 7.0 (2.6-8.5) % Eos % (Auto) 1.0 (0-4.4) % Baso % (Auto) 0.8 (0.2-1.2) % Lymph # (Auto) 1.46 (0.9-3.2) K/mm3 [place] # (Auto) 1.0 H (0.1-0.6) K/mm3 Eos # (Auto) 0.1 (0-0.3) K/mm3 Baso # (Auto) 0.1 (0.0-0.1) K/mm3 Abs Immat Gran (auto) 0.05 H (0.00-0.031) K/mm3 Absolute Neuts (auto) 10.9 H (1.3-6.7) K/mm3 Absolute Nucleated RBC 0.000 (0.0-0.012) K/mm3 Nucleated RBC % 0.0 (0.0-0.2) % PT 12.6 (11.1-14.7) Seconds INR 0.9 APTT 27.4 (22.3-36.8) Seconds Sodium 135 L (137-145) mmol/L Potassium 3.9 (3.4-5.0) mmol/L Chloride 102 (98-107) mmol/L Carbon Dioxide 24 (22-30) mmol/L Anion Gap 9 (4-12) mmol/L BUN 13 D (7-17) mg/dL Creatinine 0.79 (0.7-1.0) mg/dL Estim Creat Clear Calc 83 ml/min Estimated GFR > 60 (59 - ) Glucose 112 H (65-110) mg/dL Lactic Acid 2.4 H (0.7-2.0) mmol/L Calcium 9.7 (8.4-10.2) mg/dL Total Bilirubin 0.7 (0.2-1.3) mg/dL AST 33 (14-36) U/L ALT 16 (6-35) U/L Alkaline Phosphatase 121 (38-126) U/L Total Protein 8.3 H (6.3-8.2) g/dL Albumin 4.5 (3.5-5.1) g/dL Lipase 59 (23-300) U/L Urine Color Yellow (Yellow) Urine Appearance Clear (Clear) Urine pH 7.5 (5.0-9.0) Ur Specific Redfield 1.008 (1.001-1.035) Urine Protein Negative (Negative) mg/dL Urine Glucose (UA) Negative (Negative) mg/dL Urine Ketones Negative (Negative) mg/dL Ur Blood (Man) Negative (Negative) Urine Nitrate Negative (Negative) Urine Bilirubin Negative (Negative) Urine Urobilinogen 1.0 (<2.0) mg/dL Leukocyte Esterase Rfl Negative (Negative) TALISHA/UL Imaging Data Radiologist's impression: Impressions Abdomen/Pelvis CT 02/22/25 09:17 IMPRESSION: 1. Colitis of the descending colon detailed above. No perforation or abscess. 2. Incidental findings above Discharge Plan Discharge Clinical Impression: Colitis, N&V (nausea and vomiting) Patient Disposition: Home Condition: Stable Instructions: Antibiotic Form, Clear Liquid Diet (ED), Acute Nausea and Vomiting (DC), Colitis (ED) Additional Instructions: Zofran as needed for nausea control. Clear liquid diet as directed for the next 1-3 days. Antibiotic as directed for colitis. Have close follow-up with primary care physician. I also recommend close follow-up with GI. If you have any worsening symptoms and please call or return to the emergency department. Patient Language: Persian Prescriptions: New ondansetron 4 mg tablet,disintegrating 4 mg PO Q8H PRN (Reason: nausea and vomiting) Qty: 14 0RF amoxicillin-pot clavulanate 875-125 mg tablet 1 tablet PO Q12H 7 Days Qty: 14 0RF No Action cholecalciferol (vitamin D3) 10 mcg (400 unit) capsule 10 mcg PO DAILY famotidine 40 mg tablet 40 mg PO DAILY Qty: 90 0RF black cohosh 200 mg capsule 200 mg PO DAILY Qty: 1 0RF Rx Instructions: gyno ketorolac 10 mg tablet 10 mg PO Q8H PRN (Reason: pain) Qty: 20 0RF Rx Instructions: maximum total duration of 5 days from all oral, intranasal, or parenteral formulations fluconazole 150 mg tablet 150 mg PO ONCE Qty: 1 0RF diclofenac potassium [Lofena] 25 mg tablet 25 mg PO BID PRN (Reason: pain) Qty: 30 0RF Rx Instructions: do not take with other NSAIDs or ketoralac methocarbamol 500 mg tablet 500 mg PO TID PRN (Reason: muscle spasm) Qty: 60 0RF ibuprofen 800 mg tablet 800 mg PO TID PRN (Reason: pain) Qty: 90 0RF alprazolam [Xanax] 0.25 mg tablet 0.25 mg PO BID PRN (Reason: anxiety) Qty: 20 0RF citalopram 40 mg tablet 40 mg PO DAILY Qty: 90 0RF lisdexamfetamine [Vyvanse] 40 mg capsule 40 mg PO QAM Qty: 30 0RF hydroxyzine HCl 25 mg tablet 25 mg PO TID PRN (Reason: anxiety) Qty: 90 0RF albuterol sulfate 90 mcg/actuation HFA aerosol inhaler See Rx Instructions .ROUTE .COMPLEX Qty: 8.5 2RF Dose Instruction: INHALE 1 PUFF BY MOUTH EVERY 4 HOURS NEEDED FOR SHORTNESS OF BREATH OR WHEEZING Rx Instructions: INHALE 1 PUFF BY MOUTH EVERY 4 HOURS NEEDED FOR SHORTNESS OF BREATH OR WHEEZING Follow-up/Referrals: Chris Melo MD [Physician, Gastroenterology] Mian Mathews MD [Primary Care Provider, Family Practice]
[2025-02-22 08:42] LABS: Hematocrit 45.4 % (37.0-47.0); Hemoglobin 15.2 g/dL (12.0-15.0); Immature Granulocyte Percent A 0.4 % (0-0.5); Lymphocytes Absolute Auto 1.46 K/mm3 (0.9-3.2); Mean Corpuscular HGB Conc 33.5 g/dl (32-36); Mean Corpuscular Hemoglobin 29.7 pg (26-34); Mean Corpuscular Volume 88.7 fl (80-100); Nucleated Red Blood Cells Absolute Auto 0.000 K/mm3 (0.0-0.012); Nucleated Red Blood Cells Perc 0.0 % (0.0-0.2); Platelet Count Result 330 k/mm3 (150-375); Red Blood Count 5.12 M/mm3 (4.2-5.4); White Blood Count 13.6 K/mm3 (4.5-10.0)
[2025-02-22 08:43] LABS: Add Urine Microscopic? NO; Appearance Urine Clear (Clear); Glucose Urine UA Negative (Negative); Leukocyte Esterase Ur Negative LEU/UL (Negative); Nitrate Urine Negative (Negative); Specific Grav Ur 1.008 (1.001-1.035)
--- OUTSIDE RECORDS SUMMARY | 2025-02-22 08:45 | XMS_ITS | Clinical Summary ---
Author Organization [facility] Address [address] [place] [address] Care Team Providers Care Peoplesoft Hr Developer Name Role Phone Mian Mathews MD Primary Care Provider [phone] Source Comments [facility],non-owned Affiliates and Associated Physician Practices is amultiple site organization consisting of ambulatory clinics and hospital sitesin [place], [place], [place] and [place]. This disclosure is being madepursuant to the Care Everywhere program and may not contain all information available regarding this patient. Last updated 18.[facility] Allergies Active Allergy Reactions Criticality Noted Date [...] CDT Respiratory Rate 15 04/16/2016 3:30 PM EMPLOYMENT SECURITY OFFICER Oxygen Saturation 99% 03/10/2017 10:18 AM CDT Inhaled Oxygen Concentration - - Weight 99.8 kg (220 lb) 06/18/2024 7:03 AM EMPLOYMENT SECURITY OFFICER Height 170.2 cm (5' 7) 06/18/2024 7:03 AM EMPLOYMENT SECURITY OFFICER Body Mass Index 34.46 06/18/2024 7:03 AM EMPLOYMENT SECURITY OFFICER Plan of Treatment Health Maintenance Due Date [...] SCREENING W JANELL Routine 07/22/2023 12:20 PM EMPLOYMENT SECURITY OFFICER Encounter for screening mammogram for malignant neoplasm of breast from Last 3 Months or Most Recently Relevant to Health Maintenance Results * MAMMO BILAT SCREENING W JANELL (07/22/2023 12:20 PM EMPLOYMENT SECURITY OFFICER) Anatomical Region Laterality Modality Breast Bilateral Mammography 07/22/2023 1:25 PM EMPLOYMENT SECURITY OFFICER Impressions 07/22/2023 3:11 PM EMPLOYMENT SECURITY OFFICER : 1. A 0.8 cm oval density [...] by Osman Sosa MD (vice president of consulting services) with the assistance of Moe Espinoza DO (vice president of consulting services). I, Angela Camacho DO have personally reviewed and interpreted this examination/study. > Interpreting Provider: Angela Camacho DO on 07/22/2023 3:11 PM Narrative 07/22/2023 3:11 PM EMPLOYMENT SECURITY OFFICER EXAMINATIONS: BILATERAL DIGITAL SCREENING MAMMOGRAM AND BILATERAL BREAST TOMOSYNTHESIS WITH CAD LOCATION: [facility] EXAM DATE: 07/22/2023 HISTORY: Screening. Personal history [...] Most Recently Relevant to Health Maintenance Insurance [facility] Care Teams Peoplesoft Hr Developer Relationship Specialty Start Date End Date Mian Mathews MD [address] [place] [address] PCP - General Family Medicine 04/16/16
--- OUTSIDE RECORDS SUMMARY | 2025-02-22 08:45 | XMS_ITS | Clinical Summary ---
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 Gender Identity Not on file Sexual Orientation [...] Plan of Treatment Not on file Insurance [address] [employer] Member Subscriber Plan / Payer (Ef fective 2020-Present) Name:Lory Velázquez Relation to Subscriber:Spouse Name:LEMATAMMY Rubio Date of :1978 (Home) Address: [address] [place] [address] [place] [address] Payer ID:[id number] (NAIC) Type:REYNA GOMEZ Address: [facility] [id number] [address] Care Teams Nurse Case Manager Relationship Specialty Start Date End Date Mian Mathews MD PCP - General 08/15/20 Mian Mathews MD Family Medicine 08/15/20
[2025-02-22 08:53] LABS: INR 0.9; Partial Thromboplastin Time 27.4 Seconds (22.3-36.8); Prothrombin Time 12.6 Seconds (11.1-14.7)
[2025-02-22 08:54] LABS: Alanine Aminotransferase 16 U/L (6-35); Albumin Level 4.5 g/dL (3.5-5.1); Alkaline Phosphatase 121 U/L (38-126); Anion Gap 9 mmol/L (4-12); Aspartate Amino Transferase 33 U/L (14-36); Bilirubin,Total 0.7 mg/dL (0.2-1.3); Blood Urea Nitrogen 13 mg/dL (7-17); Calcium 9.7 mg/dL (8.4-10.2); Carbon Dioxide 24 mmol/L (22-30); Chloride 102 mmol/L (98-107); Estimated CRCL calculation 83 ml/min; Estimated Glomerular Filt Rate > 60; Glucose 112 mg/dL (65-110); Lipase 59 U/L (23-300); Potassium 3.9 mmol/L (3.4-5.0); Sodium 135 mmol/L (137-145); Total Protein 8.3 g/dL (6.3-8.2)
[2025-02-22] MEDS: HYDROmorphone HCL INJ (*CRX) 1 MG/ML SYR 0.5 MG IV PUSH (09:15)
[2025-02-22] MEDS: LACTATED RINGERS 1,000 ML 999 ML IV CONT (09:16)
== END 2025-02-22 10:46 | disposition home or self-care (01) ==
PROVIDERS: Emergency Provider Emergency Medicine; PCP Family Medicine
DX: K52.9 Noninfective gastroenteritis and colitis, unspecified (principal); K21.9 Gastro-esophageal reflux disease without esophagitis; L40.9 Psoriasis, unspecified; M19.071 Primary osteoarthritis, right ankle and foot; F41.9 Anxiety disorder, unspecified; F32.A Depression, unspecified; F90.1 Attention-deficit hyperactivity disorder, predominantly hyperactive type; F17.210 Nicotine dependence, cigarettes, uncomplicated; Z79.899 Other long term (current) drug therapy
CPT/HCPCS: 36415; 74177; 80053; 81003; 83605; 83690; 85025; 85610; 85730; 96361; 96374; 99284; J1171; J7120; Q9967

== ENCOUNTER 2025-03-18 01:25 | Day surgery (SDC) | payer OTHER, SELFPAY ==
[2025-03-10 12:45] VITALS: BMI 31.4
--- OUTSIDE RECORDS SUMMARY | 2025-03-18 01:28 | XMS_ITS | Clinical Summary ---
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 Gender Identity Not on file Sexual Orientation [...] Plan of Treatment Not on file Insurance [address] [employer] Member Subscriber Plan / Payer (Ef fective 2020-Present) Name:Lory Velázquez Relation to Subscriber:Spouse Name:LEMATAMMY Rubio Date of :1978 (Home) Address: [address] [place] [address] [place] [address] Payer ID:[id number] (NAIC) Type:REYNA GOMEZ Address: [facility] [id number] Care Teams Cytometry Technologist Relationship Specialty Start Date End Date Mian Mathews MD PCP - General 08/15/20 Mian Mathews MD Family Medicine 08/15/20
--- OUTSIDE RECORDS SUMMARY | 2025-03-18 01:28 | XMS_ITS | Clinical Summary ---
Author Organization [facility] Address [address] [place] [id number] Care Team Providers Care Core Drilling Supervisor Name Role Phone Mian Mathews MD Primary Care Provider [phone] Allergies No known active allergies Medications citalopram 40 MG tablet Take 40 mg by mouth daily. Active pantoprazole EC 40 MG tablet Take 40 mg by mouth daily. Active cyclobenzaprine 5 MG tablet Take 5 mg by mouth 3 (three) times daily as needed for Muscle Spasms. Active HYDROcodone-acet aminophen 5-325 MG tabletIndication s:Acute Pain < 7 Day Supply Take 1 tablet by mouth every 6 (six) hours as needed for Pain. Indications : Acute Pain < 7 Day Supply 15 tablet 09/18/2021 Active Social History Tobacco Use Types Packs/Day Years Used Date Smoking Tobacco: Never Assessed Comments Unknown Sex and Gender Information Value Date Recorded Sex Assigned at Not on file Legal Sex Female 4:50 PM CDT Gender Identity Not on file Sexual Orientation Not on file Last Filed Vital Signs Vital Sign Reading Time Taken Comments Blood Pressure 141/89 09/18/2021 9:18 PM CDT Pulse 90 09/18/2021 6:13 PM CDT Temperature 36.1 C (96.9 F) 09/18/2021 6:01 PM CDT Respiratory Rate 16 09/18/2021 6:01 PM CDT Oxygen Saturation 100% 09/18/2021 9:18 PM CDT Inhaled Oxygen Concentration - - Weight 104.3 kg (230 lb) 09/18/2021 6:01 PM CDT Height 170.2 cm (5' 7) 09/18/2021 6:01 PM CDT Body Mass Index 36.02 09/18/2021 6:01 PM CDT Plan of Treatment Health Maintenance Due Date Last Done Comments Cervical Cancer Screening Pa p Smear (Age 30 to 64) Every 3 Years 1972 Colorectal Cancer Screening Colonoscopy (10 Years) 1972 Annual Physical 02/27/1975 DTaP, Tdap and Td Vaccines ( 1 - Tdap) 02/27/1991 Hepatitis B Vaccines (1 of 3 - 19+ 3-dose series) 02/27/1991 Cervical Cancer Screening Pa p with HPV Testing (Age 30 to 64) Every 5 Years 02/27/2002 Cervical Cancer Screening wi th HPV 02/27/2002 Mammogram Screening 2012 Pneumococcal Vaccine: 50+ Years (1 of 1 - PCV) 02/27/2022 Zoster Vaccines (1 of 2) 02/27/2022 COVID-19 Vaccine ( - 2024-2 6 season) 2025 Influenza Adult (#1) 2025 Hepatitis C Completed 10/06/2020, 12/03/2018 Hepatitis A Vaccines Aged Out No long er eligible based on patient's age to complete this topic Meningococcal B Vaccine Aged Out No l onger eligible based on patient's age to complete this topic Meningococcal Vaccine Aged Out No [place] eligible based on patient's age to complete this topic RSV Immunizations Under 20 Months Aged Out No longer eligible b ased on patient's age to complete this topic Procedures Procedure Name Priority Date/Time Associated Diagnosis Comments HEPATITIS C ANTIBODY Routine 10/06/2020 11:40 AM CDT Encounter for long-term (current) drug use from Last 3 Months or Most Recently Relevant to Health Maintenance Results * HEPATITIS C ANTIBODY (10/06/2020 11:40 AM CDT) HEPATITIS C AB NON-REACTI VE NON-REACTI VE 10/06/2020 8:57 PM CDT [facility] 10/06/2020 11:4 0 AM CDT us Pat [facility] Fi nal Result [facility] [address] [facility] [place] [address], from Last 3 Months or Most Recently Relevant to Health Maintenance Insurance [facility] MEDICAID [facility] Care Teams Core Drilling Supervisor Relationship Specialty Start Date End Date Mian Mathews MD [address] [id number] PCP - General FAMILY PRACTICE 12/03/18
--- OUTSIDE RECORDS SUMMARY | 2025-03-18 01:28 | XMS_ITS | Encounter Summary ---
Author Organization [facility] Address [address] [place] [id number] Care Team Providers Care Scrub Wheel Operator Name Role Phone Mian Mathews MD Primary Care Provider [phone] Encounter Details Date Type Department Care Team (Late st Contact Info) Description 03/04/2014 Abstract [facility] CONVERSION [address] [place] [address] , Generic ConversionMD Social History Tobacco Use Types Packs/Day Years Used Date Smoking Tobacco: Never Assessed Comments Unknown Sex and Gender Information Value Date Recorded Sex Assigned at Not on file Legal Sex Female 4:50 PM CDT Gender Identity Not on file Sexual Orientation Not on file documented as of this encounter Plan of Treatment Not on file documented as of this encounter Visit Diagnoses Not on filedocumented in this encounter Care Teams Scrub Wheel Operator Relationship Specialty Start Date End Date Mian Mathews MD [address] [address] PCP - General FAMILY PRACTICE 12/03/18 documented as of this encounter
--- OUTSIDE RECORDS SUMMARY | 2025-03-18 01:28 | XMS_ITS | Data Portability ---
Author Organization [facility], [id number] Address [address] [place] [address] Assessment Encounter Date Assessment Date Assessment LastModified by Organization Details LastModified Time 07/28/2024 07/28/2024 10min bgelly Not available 09/2024 11:51:38 Plan of Treatment Reminders Order Date Submit Date Provider Last Modified By Organization Details Last Modified Time Details Appointments ANNUAL- EST 15 2025 10:15A Gibran MOSS MD Not available Not available Not available Lab HPV DNA, high-risk - Reflex to genotypin g if HPV Detected 2024 025 [facility] ([facility]), [address] [place] [address] [address], [place], [address], 11/12/2024 16:41:52 CBC w/ auto diff 2024 025 [facility] ([facility]), [address] [place] [address] [address], [place], [address], 11/11/2024 10:13:41 CMP, serum or plasma 2024 025 [facility] ([facility]), [address] [place] [address] [address], [place], [address], 11/11/2024 10:13:41 lipid panel, serum 2024 025 [facility] ([facility]), [address], [place], [address], 11/11/2024 10:13:40 HbA1c (hemoglob in A1c), blood 2024 025 [facility] ([facility]), [address], [place], [address], 11/11/2024 10:13:44 TSH, serum, reflex free T4 2024 025 [facility] ([facility]), [address], [place], [address], 11/10/2024 11:00:34 vitamin D, 25-hydrox y, total, serum 2024 025 [facility] ([facility]), [address], [place], [address], 11/11/2024 10:13:42 vitamin B12, serum 2024 025 [facility] ([facility]), [address], [place], [address], 11/11/2024 10:13:43 pap, LB 2024 025 [facility] ([facility]), [address], [place], [address], 11/12/2024 16:41:52 Referral None recorded. Procedures None recorded. Surgeries None recorded. Imaging MAMMO, screening , tomosynth esis, bilateral 2024 025 [email or web address] [facility], [address] [place], [address], 11/12/2024 17:49:57 Medication Orders gabapenti n 100 mg capsule 2024 025 [id number], [address] [facility], [place], [place], [id number], 07/28/2024 11:51:43 Patient TargetsNo targets recorded. Patient InstructionsNo instructions recorded. Reason for Referral None Reported. Results Created Date Observation Date Name Description Value Unit Range Abnormal Flag Note LastModifiedBy Organization Detail LastModifiedTime 11/11/19 25 11/11/2024 LIPID PANEL cholesterol 264 mg/dL <200 high Not Available [facility] ([facility]) [address] [place] [address] [address], [place], [address], 11/11/2024 10:13:40 11/11/19 25 11/11/2024 LIPID PANEL triglyceride s 78 mg/dL <150 Not Available [facility] ([facility]) [address] [place] [address] [address], [place], [address], 11/11/2024 10:13:40 11/11/19 25 11/11/2024 LIPID PANEL HDL cholesterol 58 mg/dL >39 Not Available [facility] ([facility]) [address] [place] [address] [address], [place], [address], 11/11/2024 10:13:40 11/11/19 25 11/11/2024 LIPID PANEL cholesterol / HDL ratio 4.55 ratio 0.00-4 .44 high Not Available [facility] ([facility]) [address] [place] [address] [address], [place], [address], 11/11/2024 10:13:40 11/11/19 25 11/11/2024 LIPID PANEL non-HDL cholesterol 206 mg/dL <130 high Not Available [facility] ([facility]) [address] [place] [address] [address], [place], [address], 11/11/2024 10:13:40 11/11/1911/11/2024 LIPID PANEL LDL cholesterol (calculation ) 190 mg/dL <130 high LDL Irene stero l Level s* Less than 100 mg/dL Optim al 100 to 129 mg/dL Near Optim al/ Above Optim al 130 to 159 mg/dL Borde rline High 160 to 189 mg/dL High 190 mg/dL and above Very High * Tanna bergman as gabbi jiménez by the 2003 ATPII I guide lines Not Available [facility] ([facility]) [address], [place], [address], 11/11/2024 10:13:40 11/11/1911/11/2024 LIPID PANEL LDL/HDL ratio 3.3 ratio <3.3 high ___ LDL Irene stero l Patie nt Histo ry ___ Test Date: 10/23 LDL Resul ts: 172 Units : mg/dL % Shook e: - ----- ----- ----- ----- ----- ----- ----- ----- ----- ----- ----- ----- ----- ----- --- Test Date: 11/10 LDL Resul ts: 190 Units : mg/dL % Shook e: +10% ___ Not Available [facility] ([facility]) [address] [place] [address] [address], [place], [address], 11/11/2024 10:13:40 11/11/19 25 11/11/2024 CBC WITH PLATE LET AND DIFFE RENTI AL WBC 4.9 K/uL 3.8-11 .5 Not Available [facility] ([facility]) [address] [place] [address] [address], [place], [address], 11/11/2024 10:13:41 11/11/19 25 11/11/2024 CBC WITH PLATE LET AND DIFFE RENTI AL red blood cell count (RBC) 4.38 M/mm3 3.60-5 .30 Not Available [facility] ([facility]) [address] [place] [address] [address], [place], [address], 11/11/2024 10:13:41 11/11/19 25 11/11/2024 CBC WITH PLATE LET AND DIFFE RENTI AL hemoglobin (HGB) 13.5 gm/dL 11.5-1 5.5 Not Available [facility] ([facility]) [address] [place] [address] [address], [place], [address], 11/11/2024 10:13:41 11/11/19 25 11/11/2024 CBC WITH PLATE LET AND DIFFE RENTI AL hematocrit (HCT) 42.5 % 35.2-4 6.4 Not Available [facility] ([facility]) [address] [place] [address] [address], [place], [address], 11/11/2024 10:13:41 11/11/19 25 11/11/2024 CBC WITH PLATE LET AND DIFFE RENTI AL MCV 97.0 fL 79.0-9 9.0 Not Available [facility] ([facility]) [address] [place] [address] [address], [place], [address], 11/11/2024 10:13:41 11/11/19 25 11/11/2024 CBC WITH PLATE LET AND DIFFE RENTI AL MCH 30.8 pg 26.9-3 5.0 Not Available [facility] ([facility]) [address] [place] [address] [address], [place], [address], 11/11/2024 10:13:41 11/11/19 25 11/11/2024 CBC WITH PLATE LET AND DIFFE RENTI AL MCHC 31.8 g/dL 30.4-3 4.8 Not Available [facility] ([facility]) [address] [place] [address] [address], [place], [address], 11/11/2024 10:13:41 11/11/19 25 11/11/2024 CBC WITH PLATE LET AND DIFFE RENTI AL RDW 43.3 fL 38.6-5 3.8 Not Available [facility] ([facility]) [address] [place] [address] [address], [place], [address], 11/11/2024 10:13:41 11/11/19 25 11/11/2024 CBC WITH PLATE LET AND DIFFE RENTI AL platelet count 289 K/cum m 137-39 7 Not Available [facility] ([facility]) [address] [place] [address] [address], [place], [address], 11/11/2024 10:13:41 11/11/19 25 11/11/2024 CBC WITH PLATE LET AND DIFFE RENTI AL neutrophils automated 56.6 % 41.0-7 7.0 Not Available [facility] ([facility]) [address] [place] [address] [address], [place], [address], 11/11/2024 10:13:41 11/11/19 25 11/11/2024 CBC WITH PLATE LET AND DIFFE RENTI AL lymphocytes automated 29.8 % 14.0-4 8.0 Not Available [facility] ([facility]) [address] [place] [address] [address], [place], [address], 11/11/2024 10:13:41 11/11/19 25 11/11/2024 CBC WITH PLATE LET AND DIFFE RENTI AL monocytes automated 10.0 % 4.0-13 .0 Not Available [facility]) [address] [place] [address] [address], [place], [address], 11/11/2024 10:13:41 11/11/19 25 11/11/2024 CBC WITH PLATE LET AND DIFFE RENTI AL eosinophils automated 2.0 % 0.0-8. 0 Not Available [facility]) [address] [place] [address] [address], [place], [address], 11/11/2024 10:13:41 11/11/19 25 11/11/2024 CBC WITH PLATE LET AND DIFFE RENTI AL basophils automated 1.6 % 0.0-1. 5 high Not Available [facility]) [address] [place] [address] [address], [place], [address], 11/11/2024 10:13:41 11/11/19 25 11/11/2024 CBC WITH PLATE LET AND DIFFE RENTI AL immature granulocyte automated 0.0 % 0.0-1. 0 Not Available [facility]) [address] [place] [address] [address], [place], [address], 11/11/2024 10:13:41 11/11/19 25 11/11/2024 COMPR EHENS SALINAS METAB OLIC PANEL (CMP) sodium 138 mmol/ L 135-14 5 Not Available [facility] ([facility]) [address] [place] [address] [address], [place], [address], 11/11/2024 10:13:41 11/11/19 25 11/11/2024 COMPR EHENS SALINAS METAB OLIC PANEL (CMP) potassium 4.5 mmol/ L 3.5-5. 3 Not Available [facility] ([facility]) [address] [place] [address] [address], [place], [address], 11/11/2024 10:13:41 11/11/19 25 11/11/2024 COMPR EHENS SALINAS METAB OLIC PANEL (CMP) chloride 103 mmol/ L 97-108 Not Available [facility] ([facility]) [address] [place] [address] [address], [place], [address], 11/11/2024 10:13:41 11/11/19 25 11/11/2024 COMPR EHENS SALINAS METAB OLIC PANEL (CMP) CO2 26 mmol/ L 22-32 Not Available [facility] ([facility]) [address] [place] [address] [address], [place], [address], 11/11/2024 10:13:41 11/11/19 25 11/11/2024 COMPR EHENS SALINAS METAB OLIC PANEL (CMP) glucose 82 mg/dL 65-99 Not Available [facility] ([facility]) [address] [place] [address] [address], [place], [address], 11/11/2024 10:13:41 11/11/19 25 11/11/2024 COMPR EHENS SALINAS METAB OLIC PANEL (CMP) BUN 5 mg/dL 6-20 low Not Available [facility] ([facility]) [address] [place] [address] [address], [place], [address], 11/11/2024 10:13:41 11/11/19 25 11/11/2024 COMPR EHENS SALINAS METAB OLIC PANEL (CMP) creatinine 0.67 mg/dL 0.50-1 .00 Not Available [facility] ([facility]) [address] [place] [address] [address], [place], [address], 11/11/2024 10:13:41 11/11/19 25 11/11/2024 COMPR EHENS SALINAS METAB OLIC PANEL (CMP) calcium 9.5 mg/dL 8.6-10 .4 Not Available [facility] ([facility]) [address] [place] [address] [address], [place], [address], 11/11/2024 10:13:41 11/11/19 25 11/11/2024 COMPR EHENS SALINAS METAB OLIC PANEL (CMP) eGFR by creatinine 105 mL/mi n/1.7 3m2 >59 Not Available [facility]) [address] [place] [address] [address], [place], [address], 11/11/2024 10:13:41 11/11/19 25 11/11/2024 COMPR EHENS SALINAS METAB OLIC PANEL (CMP) protein 7.0 g/dL 6.0-8. 3 Not Available [facility]) [address] [place] [address] [address], [place], [address], 11/11/2024 10:13:41 11/11/19 25 11/11/2024 COMPR EHENS SALINAS METAB OLIC PANEL (CMP) albumin 4.3 g/dL 3.5-5. 3 Not Available [facility]) [address] [place] [address] [address], [place], [address], 11/11/2024 10:13:41 11/11/19 25 11/11/2024 COMPR EHENS SALINAS METAB OLIC PANEL (CMP) alkaline phosphatase 112 IU/L 35-121 Not Available [facility] ([facility]) [address] [place] [address] [address], [place], [address], 11/11/2024 10:13:41 11/11/19 25 11/11/2024 COMPR EHENS SALINAS METAB OLIC PANEL (CMP) ALT (SGPT) 6 IU/L <5-47 Not Available [facility]) [address] [place] [address] [address], [place], [address], 11/11/2024 10:13:41 11/11/19 25 11/11/2024 COMPR EHENS SALINAS METAB OLIC PANEL (CMP) AST (SGOT) 16 IU/L <5-40 Not Available [facility] ([facility]) [address] [place] [address] [address], [place], [address], 11/11/2024 10:13:41 11/11/19 25 11/11/2024 COMPR EHENS SALINAS METAB OLIC PANEL (CMP) bilirubin, total 0.3 mg/dL <0.2-1 .2 Not Available [facility] ([facility]) [address] [place] [address] [address], [place], [address], 11/11/2024 10:13:41 11/11/19 25 11/11/2024 COMPR EHENS SALINAS METAB OLIC PANEL (CMP) A/G ratio 1.6 1.1-2. 5 Not Available [facility] ([facility]) [address] [place] [address] [address], [place], [address], 11/11/2024 10:13:41 11/11/19 25 11/11/2024 VITAM IN D 25-HY DROXY vitamin D 25-hydroxy 43.3 NG/mL 30.0-1 00.0 Inter preta tion of Vitam in D 25 OH: < 20 ng/mL - Defic iency 20 - 29 ng/mL - Insuf ficie ncy 30 - 100 ng/mL - Suffi cienc y > 100 ng/mL - Super -ther apeut ic- toxic ity may occur above this level . Clini isabel corre latio n requi red. Not Available [facility] ([facility]) [address], [place], [address], 11/11/2024 10:13:42 11/11/19 25 11/11/2024 VITAM IN B12 vitamin B12 651 pg/mL 232-12 45 Not Available [facility]) [address], [place], [address], 11/11/2024 10:13:43 11/11/19 25 11/11/2024 HEMOG LOBIN A1C hemoglobin A1C 5.4 % <5.7 The follo wing HbA1c range s recom marsha d by the Soloeri can Diabe emely Assoc iatio n (ADA) may be used as an aid in the diagn osis of diabe emely melli tus. HbA1c Sugge sted Diagn osis >=6.5 % Diabe tic 5.7% - 6.4% Pre-D iabet ic <5.7% Non-D iabet ic Not Available [facility]) [address], [place], [address], 11/11/2024 10:13:43 11/11/19 25 11/11/2024 HEMOG LOBIN A1C estimated average glucose (EAG) 108 mg/dL Estim ated Stanton ge Gluco se (eAG) is calcu lated using the equat ion eAG = (28.7 x HbA1c ) - 46.7 based on the guide lines estab lishe d by the ADA. If the patie nt has certa in disea ses inclu ding kidne y disea se, sickl e cell anemi a, thala ssemi a, or is takin g medic ation s such as dapso ne, eryth ropoi etin, or iron, eAG shoul d not be evalu ated. Not Available [facility] ([facility]) [address], [place], [address], 11/11/2024 10:13:43 11/11/19 25 11/11/2024 TSH TSH 1.36 mU/L 0.43-5 .25 Not Available [facility] ([facility]) [address], [place], [address], 11/11/2024 10:13:44 Result Notes None recorded. Problems Name Problem SNOMED Code Status Onset Date Resolution Date Notes Provider Name and Address Organization Details Recorded Time Attention deficit hyperacti vity disorder 786218881 Active ADHD, Problem Code: 314.01; Problem Code Type: ICD-9; Not Available [facility] 12:23:04 Atypical glandular cells on cervical Papanicol aou smear 977677160 Active Abnormal PAP Smear, Done elsewhere w/ a Colpo Problem Code: 795.00; Problem Code Type: ICD-9; Not Available [facility] 12:23:04 Psoriasis 5908079 Active Psoriasis, Problem Code: 696.1; Problem Code Type: ICD-9; Not Available [facility] 12:23:04 Menopausa l symptom 42010467 Active 2024 JENNY MOSS MD [address], [place], [address] , [facility] 11:50:51 Problem Notes None recorded. Procedures Surgical History Date Name Laterality Status Provider Name and Address Organization Details Recorded Time 11/11/19 Date of Last Pap Smear completed JENNY MOSS MD [address], [place], [address], [facility] 11/15/2024 10:07:15 06/18/19 25 Date of Last Mammogram completed Humaira Reed [facility] 11/10/2024 10:39:31 section completed Not Available [facility] 09/23/2024 14:15:19 biopsy of breast completed Not Available [facility] 09/23/2024 14:15:19 dilation and curettage completed Not Available [facility] 09/23/2024 14:15:19 tonsillectomy completed Not Available [facility] 09/23/2024 14:15:19 hysteroscopy completed [facility] Available [facility] 14:15:19 medical termination of completed Not Available [facility] 09/23/2024 14:15:19 introduction of Mirena coil completed Not Available [facility] 09/23/2024 14:15:20 colposcopy completed Not Available [facility] 09/23/2024 14:15:20 removal of Mirena coil completed Not Available [facility] 09/23/2024 14:15:20 laparoscopy completed Not Available [facility] 09/23/2024 14:15:20 Orthopedic Surgery completed [facility] 11/09/2024 10:17:38 Breast Biopsy completed [facility] 11/09/2024 10:17:38 Imaging Results None recorded. Procedure Notes None recorded. Medical Equipment None Reported. Allergies Allergen ID Allergen Name Allergen Category Reaction Reaction Severity Criticality Documentation Date Start Date Code Code System Note Provider Name and Address Organization Details Recorded Time 031415 acetamino phen / oxycodone medicatio n Not available Not available Not available 09/23/2024 18259 3 RxNorm NOTE: 02/06 - df Per pt has taken it since and she is fine Aller gyRea ction : 'face itchi ng'; Not Available [facility] 13:17:12 Medications Name Sig Start Date Stop Date Status Note LastModified by Organization Details LastModified Time cyclobenzap rine 10 mg tablet TAKE 1 TABLET BY MOUTH THREE TIMES DAILY NEEDED FOR MUSCLE SPASMS 11/10 completed Not Available Not Available Not Available medroxyprog esterone 10 mg tablet TAKE 1 TABLET BY MOUTH TWICE DAILY FOR 5 DAYS THEN TAKE 1 TABLET BY MOUTH DAILY FOR 5 DAYS active Not Available Not Available No t Available methocarbam ol 500 mg tablet TAKE 1 TABLET BY MOUTH THREE TIMES DAILY NEEDED FOR MUSCLE SPASM 11/10 completed Not Available Not Available Not Available prednisone 10 mg tablet TAKE 3 TABLETS BY MOUTH DAILY FOR 5 DAYS 11/10 completed Not Available Not Available Not Available clindamycin HCl 300 mg capsule BREAK ONE CAPSULE INTO WARM WATER AND SOAK FEET FOR 15 MINUTES ONCE DAILY 11/10 completed Not Available Not Available Not Available citalopram 40 mg tablet TAKE 1 TABLET BY MOUTH DAILY active Not Available Not Available No t Available azithromyci n 250 mg tablet TAKE 2 TABLETS BY MOUTH FOR 1 DAY THEN TAKE 1 TABLET BY MOUTH DAILY FOR 4 DAYS 11/10 completed Not Available Not Available Not Available ibuprofen 800 mg tablet TAKE 1 TABLET BY MOUTH THREE TIMES DAILY NEEDED FOR PAIN active Not Available Not Available No t Available fluconazole 150 mg tablet TAKE 1 TABLET BY MOUTH 1 TIME 11/10 completed Not Available Not Available Not Available hydrocodone 5 mg-acetamin ophen 325 mg tablet TAKE 1 TABLET BY MOUTH EVERY 6 TO 8 HOURS NEEDED FOR PAIN 11/10 completed Not Available Not Available Not Available fluconazole 200 mg tablet TAKE 1 TABLET BY MOUTH EVERY DAY 11/10 completed Not Available Not Available Not Available famotidine 40 mg tablet TAKE 1 TABLET BY MOUTH DAILY active Not Available Not Available No t Available sulfamethox azole 800 mg-trimetho prim 160 mg tablet TAKE 1 TABLET BY MOUTH TWICE DAILY 11/10 completed Not Available Not Available Not Available omeprazole 40 mg capsule,del ayed release TAKE 1 CAPSULE BY MOUTH DAILY 11/10 completed Not Available Not Available Not Available tramadol 50 mg tablet TAKE 1 TABLET BY MOUTH EVERY 6 HOURS NEEDED FOR PAIN 11/10 completed Not Available Not Available Not Available ketorolac 10 mg tablet TAKE 1 TABLET BY MOUTH EVERY 8 HOURS NEEDED PAIN. MAX DURATION OF 5 DAYS 11/10 completed Not Available Not Available Not Available alprazolam 0.25 mg tablet TAKE 1 TABLET BY MOUTH TWICE DAILY NEEDED FOR ANXIETY active Not Available Not Available No t Available vancomycin 250 mg capsule BREAK ONE CAPSULE INTO WARM WATER AND SOAK FEET FOR 15 MINUTES ONCE DAILY 11/10 completed Not Available Not Available Not Available dextroamphe tamine-amph etamine 15 mg tablet TAKE 1 TABLET BY MOUTH TWICE DAILY 4 TO 6 HOURS APART active Not Available Not Available No t Available hydroxyzine HCl 25 mg tablet TAKE 1 TABLET BY MOUTH THREE TIMES DAILY NEEDED FOR ANXIETY active Not Available Not Available No t Available gabapentin 100 mg capsule TAKE 2 CAPSULES BY MOUTH DAILY FOR HOT FLASHES 2024 active Not Available Not Available Not Avai lable albuterol sulfate HFA 90 mcg/actuati on aerosol inhaler INHALE 1 PUFF BY MOUTH EVERY 4 HOURS NEEDED FOR SHORTNESS OF BREATH OR WHEEZING active Not Available Not Available No t Available hydroxyzine HCl 10 mg tablet TAKE 1 TABLET BY MOUTH THREE TIMES DAILY NEEDED FOR ANXIETY 11/10 completed Not Available Not Available Not Available amoxicillin 875 mg-potassiu m clavulanate 125 mg tablet TAKE 1 TABLET BY MOUTH EVERY 12 HOURS FOR 10 DAYS 11/10 completed Not Available Not Available Not Available Fish Oil active Not Available Not Avai lable Not Available black cohosh active Not Available Not Available Not Available Vyvanse 40 mg capsule TAKE 1 CAPSULE BY MOUTH EVERY MORNING active Not Available Not Available No t Available Vitamin D2 active Not Available Not Av ailable Not Available Vitals Date Recorded Body height Body mass index (BMI) Body weight Systolic And Diastolic Provider Name and Address Organization Details Last Updated DateTime 11/10/2024 170.18 cm 31.3 kg/m2 84363.47 g 110/64 mm[Hg] Humaira Reed [place] [facility] 11/10/2024 10:41:13 Social History Question Answer Notes LastModified by Organizat ion Details LastModified Time Tobacco Smoking Status Former Smoker Note: - [employer] 06/29/2024 less than 1/2 ppd; Screenin06/29/2024 Not Available [employer] 09/23/2024 14:51:50 Do You Have An Advance Directive? No Information not available 11/09/2024 If You Are , What Was Your Level Of Alcohol Consumption Prior To ? None [email or web address] Information not available 11/10/2024 What Is Your Level Of Caffeine Consumption? Heavy Information not available 11/09/2024 What Type Of Diet Are You Following? REGULAR Information not available 11/09/2024 How Many Times Per Week Do You Exercise? Less Than 1 Time Per Week SocialHistor yQuestion: 'Active But No Formal Exercise'; Information not available 09/23/2024 What Is Your Relationship Status? [email or web address] Information not available 11/10/2024 How Much Tobacco Do You Smoke? No [email or web address] Information not available 11/10/2024 Sex: Unknown Functional Status Question Answer Note LastModified by Organizat ion Details LastModified Time What is your level of alcohol consumption? None Information not available 11/09/2024 Are you currently employed? 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 Family History Relationship Description Onset Age of this Age Resolved Age Notes LastModified by Organization Details LastModified Time Maternal Grandmother Dementia associated with another disease Rhiannon ia Condit ions Proble m Code: 294.1; Proble m Code Type: ICD-9; API-27 Not available 11/10/2024 10:28:38 Maternal Grandmother Alzheimer's disease Alzhei genaro's Diseas e [email or web address] Not available 11/10/2024 10:28:38 Maternal Grandfather Malignant neoplastic disease Cancer mgf-alyssa ng API-27 Not available 11/10/2024 10:28:38 Maternal Grandmother Hypertensive disorder High Blood Pressu re [email or web address] Not available 09/23/2024 14:29:15 Unspecified Relation Family history unknown *Unkno wn patern al family medica l histor y [email or web address] Not available 11/10/2024 10:28:38 Unspecified Relation Anxiety disorder [email or web address] Not available 2024 10:28:38 Medical History Condition Response GI- Hemorrhoids N Cancer- Genetic screening Psych- ADD Y Dermatology-Eczema/Psoriasis Y Dermatology-Other N Reviewed with no changes Y ID-Other Y Hematology- Anemia N GI- Reflux/Ulcers N ID- Chicken Pox/Shingles N Gynecological History Statement/Question Response Date of Last Mammogram 06/18/2024 Flow Heavy History of Fibroids Y Date of LMP 10/26/2024 Current Control Method: None History of Recurrent Ovarian Cysts N Age at first intercourse 19 HPV Vaccine Not Completed Date of Last Cholesterol Screening 05/26 History of PCOS N History of Infertility N History of Cervical Dysplasia N History of Vulvar Dysplasia N Duration of Flow (days) 3 Current Control Method None Age at Menarche 16 History of Endometriosis Y Sexually Active? Y History of Abnormal PAP Y History of Dysmenorrhea N Menses Monthly N Date of Last Pap Smear 11/10/2024 Sexual Problems? N History of Sexually Transmitted Infectio n N Obstetrics History GPAL:G 3 P 2 0 1 2 Type Value Multiple Births 0 Full Term 2 Induced 1 Spontaneous 0 Premature 0 Living 2 Ectopics 0 Total 3 Past Encounters Encounter ID Performer Location Encounter Start Date Encounter Closed Date Diagnosis/Indication Diagnosis SNOMED-CT Code Diagnosis ICD10 Code Diagnosis IMO Codes Diagnosis Note [id number] JENNY MOSS MD [id number] 7 [facility] [address] [facility] [address] [place] [address] 07/28/2024 11:16:11 07/28/2024 11:53:16 Menopausal symptom 87742491 N95.1 [id number] JENNY MOSS MD [id number] [place] [address] 11/10/2024 10:24:27 11/10/2024 11:05:12 Screening mammography 46546944 Z12.31 [id number] Screening for malignant neoplasm of cervix 885671700 Z12.4 Human isa lloma virus screening 600958390 Z11.51 Attention deficit hyperactivity disorder 461982590 F90.9 Psoriasis 7137807 L40.9 Gynecologi c examination 05825629 Z01.419 778974 Endocrine/ metabolic screening 914184969 Z13.228 Health Concerns Section Related Observation LastModified by Organization Detai ls LastModified Time None Recorded Concern Status LastModified by Organization Details LastModified Time None Recorded Advance Directives Directive N: Payers Insurance Date Sequence Insurance Name Policy Number Policy Ruiz Covered Member ID Ruiz Member ID Guarantor Name 12/04/2024 1 [facility] (MEDICAID REPLACEMENT - HMO) Lory Velázquez [id number] Lory Velázquez Notes Date Note Type Note Provider Name and Address Organization Details Recorded Time 5 text/html I'm in [place], she's at home, telehealth. she's off of the xanax, and black cohosh not helping much. discussed her citalopram, which is already max dose. she has taken gabapentin in past for nerve issues and was not sedating, so can try that now for VMS. 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 For urinary symptoms, patient reportsno hematuriaandno incontinence. For vulvar complaints, patient reportsnone. For vaginal complaints, patient reportsnone. For gastrointestinal symptoms, patient reportsno gastrointestinal symptoms.Breast symptomsFor breast, patient reportsno breast pain,no breast lump, andno nipple discharge.Endocrine symptomsFor sexual complaints, patient reportsno sexual complaints,no pain during intercourse/sexual function, andnormal libido. For menopausal symptoms, patient reportsno menopausal symptomsandnormal vaginal lubrication.Psychological symptomsFor psychological symptoms, patient reportsno depression,no anxiety, andno pmdd. only one period since mirena removed in jun, and was recent, when dog was sick. vasectomy. PMB precautions reviewed. would like labs today. dypsareunia/dryness better since IUD removed, gave another uber liae sample. Loves the gabapentin/cohosh, no more VMS! JENNY MOSS MD [address], [place], [address], [facility] 11/10/2024 11:00:32 OBGyn Episode No OBEpisode recorded.
--- OUTSIDE RECORDS SUMMARY | 2025-03-18 01:28 | XMS_ITS | Clinical Summary ---
Author Organization [facility] [employer] Address [address] [place] [address] Care Team Providers Care Nurse Educator Name Role Phone Mian Mahtews MD Primary Care Provider [phone] Source Comments [facility] [employer],non-owned Affiliates and Associated Physician Practices is amultiple site organization consisting of ambulatory clinics and hospital sitesin [place], [place], [place] and [place]. This disclosure is being madepursuant to the Care Everywhere program and may not contain all information available regarding this patient. Last updated 18.[facility] [employer] Allergies Active Allergy Reactions Criticality Noted Date [...] CDT Respiratory Rate 15 04/16/2016 3:30 PM GUTTER INSTALLER Oxygen Saturation 99% 03/10/2017 10:18 AM CDT Inhaled Oxygen Concentration - - Weight 99.8 kg (220 lb) 06/18/2024 7:03 AM GUTTER INSTALLER Height 170.2 cm (5' 7) 06/18/2024 7:03 AM GUTTER INSTALLER Body Mass Index 34.46 06/18/2024 7:03 AM GUTTER INSTALLER Plan of Treatment Health Maintenance Due Date [...] SCREENING W JANELL Routine 07/22/2023 12:20 PM GUTTER INSTALLER Encounter for screening mammogram for malignant neoplasm of breast from Last 3 Months or Most Recently Relevant to Health Maintenance Results * MAMMO BILAT SCREENING W JANELL (07/22/2023 12:20 PM GUTTER INSTALLER) Anatomical Region Laterality Modality Breast Bilateral Mammography 07/22/2023 1:25 PM GUTTER INSTALLER Impressions 07/22/2023 3:11 PM GUTTER INSTALLER : 1. A 0.8 cm oval density [...] reviewed and dictated by Osman Sosa MD (residential roofer helper) with the assistance of Moe Espinoza DO (residential roofer helper). I, Angela Camacho DO have personally reviewed and interpreted this examination/study. > Interpreting Provider: Angela Camacho DO on 07/22/2023 3:11 PM Narrative 07/22/2023 3:11 PM GUTTER INSTALLER EXAMINATIONS: BILATERAL DIGITAL SCREENING MAMMOGRAM AND BILATERAL BREAST TOMOSYNTHESIS WITH CAD LOCATION: [facility] EXAM DATE: 07/22/2023 HISTORY: Screening. Personal [...] Most Recently Relevant to Health Maintenance Insurance [facility] Care Teams Nurse Educator Relationship Specialty Start Date End Date Mian Mathews MD [address] [place] [address] PCP - General Family Medicine 04/16/16
--- OUTSIDE RECORDS SUMMARY | 2025-03-18 01:28 | XMS_ITS | Encounter Summary ---
Author Organization [facility] Address [address] [place] [address] Care Team Providers Care Asw/Asuw Tactical Air Controller Name Role Phone Mian Mathews MD Primary Care Provider [phone] Encounter Details Date Type Department Care Team (Late st Contact Info) Description 02/26/2013 Abstract [facility] CONVERSION [address] [place] [address] , Generic Conversion, Social History Tobacco Use Types Packs/Day Years [...] on filedocumented in this encounter Care Teams Asw/Asuw Tactical Air Controller Relationship Specialty Start Date End Date Mian Mathews MD [address] [address] PCP - General FAMILY PRACTICE 12/03/18 documented as of this encounter
[2025-03-18 09:51] VITALS: BP 128/84; PULSE 75; RESP 16; TEMP 36.7; O2SAT 100
[2025-03-18 09:58] LABS: BEDSIDEPREGUCG Negative (Negative)
[2025-03-18] MEDS: LACTATED RINGERS 1,000 ML 150 ML IV CONT (10:04)
--- NOTE | 2025-03-18 10:50 | P.PNAN_ITS ---
Anes - Initial Pre Proc Eval Procedure: Operation Date: 03/18/25 10:30 Proposed Procedures p Diagnostic Colonoscopy - Zackary Arriaza MD Date/Time: 03/18/25 10:50 Surgeon: Zackary Arriaza MD Pre Op Diagnosis: Diarrhea, unspecified Patient Data Age: 55 Gender: F Height: 1.7 m Weight: 88.9 kg Last Vital Signs Temp 98.0 F 03/18/25 09:51 Pulse 75 03/18/25 09:51 Resp 16 03/18/25 09:51 BP 128/84 03/18/25 09:51 Pulse Ox 100 03/18/25 09:51 O2 Del Method Room Air 03/18/25 09:51 Allergies Allergy/AdvReac Type Severity Reaction Status Date / Time No Known Allergies Allergy Verified 03/18/25 09:46 Home Medications ?Medication ?Instructions ?Recorded ?Confirmed ?Type cholecalciferol (vitamin D3) 10 10 mcg PO DAILY 03/18/25 History mcg (400 unit) capsule ketorolac 10 mg tablet 10 mg PO Q8H PRN pain #20 ta bs 04/29/24 03/10/25 Rx ibuprofen 800 mg tablet 800 mg PO TID PRN pain #90 t abs 10/06/24 03/10/25 Rx methocarbamol 500 mg tablet 500 mg PO TID PRN muscle s pasm #60 10/06/24 03/10/25 Rx tabs famotidine 40 mg tablet 40 mg PO DAILY #90 tabs 10/2503/18/25 Rx alprazolam 0.25 mg tablet (Xanax) 0.25 mg PO BID PRN a nxiety #20 tabs 01/10/25 03/18/25 Rx citalopram 40 mg tablet 40 mg PO DAILY #90 tabs 12/2403/18/25 Rx albuterol sulfate 90 mcg/actuation See Rx Instructions .Route 01/18/25 03/18/25 Rx aerosol inhaler .COMPLEX #8.5 grams ondansetron 4 mg disintegrating 4 mg PO Q8H PRN nausea and 02/22/25 03/18/25 Rx tablet vomiting #14 tabs hydroxyzine HCl 25 mg tablet 25 mg PO TID PRN anxiety #90 tabs 02/23/25 03/18/25 Rx lisdexamfetamine 40 mg capsule 40 mg PO QAM #30 caps 1 03/18/25 Rx (Vyvanse) ixekizumab 80 mg/mL subcutaneous 80 mg subcut ONCE 03/18/25 History auto-injector (Taltz Autoinjector) black cohosh 200 mg capsule 3,000 mg PO DAILY 03/10/25 03/18/25 History furosemide 20 mg tablet (Lasix) 20 mg PO BID 03/10/25 03/18/25 History Laboratory Tests 03/18/25 09:51 POC Urine HCG, Qual Negative (Negative) Patient hx anesthesia problems: none Family hx anesthesia problems: none Results Review: All pre-operative results and documents have been reviewed as part of the pre- operative evaluation. [facility] Past Medical History Medical History Plantar fasciitis, right Arthritis of right subtalar joint Microhematuria Cervical muscle pain Numbness and tingling of right arm Right shoulder pain History of bruising easily Abdominal pain, RLQ Nausea and vomiting Jaw pain Mesenteric panniculitis Umbilical hernia Cholelithiasis Dextroscoliosis of thoracolumbar spine Wedge fracture of lumbar vertebra Lumbar spondylosis GERD without esophagitis Chronic joint pain Fracture of right heel surgical repair Acquired lymphedema Tobacco abuse Insomnia Anxiety and depression Attention-deficit hyperactivity disorder, predominantly hyperactive type Psoriasis Surgical History Surgical History H/O foot surgery Dr. Nico Peña History of dilatation and curettage History of laparoscopy History of History of varicose vein stripping Family History Family History Grandparent Hypertension Family history of lung cancer Other Diabetes mellitus Family history of coronary artery disease Social History Social History Smoking packs per day: 0.5 Smoking cigarettes per day: 10.0 Smoking status: Current every day smoker Tobacco type: e-cigarettes/vaping Second hand tobacco smoke exposure: No Alcohol intake: current Alcohol use details: rarely Substance use: current Substance use type: marijuana Do You Feel Safe in your Home?: Yes Lack of Transportation: No Lack of Food: Sometimes True Current Housing: I Have Housing Concerned About Future Housing: No Difficulty Paying Gas/Electric Bills: YES Difficulty Paying for Meds: No Currently Unemployed: YES Education: Associate Degree Difficulty w/ Childcare or Family Care: No Living arrangements: with family Occupation/Education: occupation 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 Ex smoker, quit 2024. Vapes currently. Informed Consent: The patient's anesthetic plan and its attendant risks and benefits were discussed with the patient/family/POA. Questions were solicited and answers provided to the satisfaction of the patient/family/POA.
--- NOTE | 2025-03-18 10:55 | PM.IMHP ---
H&P: HPI History of Present Illness Date/Time: 03/18/25 10:55 Chief Complaint: Abdominal pain-diarrhea Narrative: Patient seen in the office on 03/08/2025 for persistent lower abdominal pain of ajhaqwlq-qd-uzjucz intensity and watery diarrhea. Blood and stool tests were sent. Patient here for colonoscopy to rule out inflammatory bowel disease versus microscopic colitis. Will plan on doing colonic biopsies. Review of Systems Review of Systems: All systems reviewed & are unremarkable except as noted in HPI and below PMFSH Past Medical History Medical History Plantar fasciitis, right Arthritis of right subtalar joint Microhematuria Cervical muscle pain Numbness and tingling of right arm Right shoulder pain History of bruising easily Abdominal pain, RLQ Nausea and vomiting Jaw pain Mesenteric panniculitis Umbilical hernia Cholelithiasis Dextroscoliosis of thoracolumbar spine Wedge fracture of lumbar vertebra Lumbar spondylosis GERD without esophagitis Chronic joint pain Fracture of right heel surgical repair Acquired lymphedema Tobacco abuse Insomnia Anxiety and depression Attention-deficit hyperactivity disorder, predominantly hyperactive type Psoriasis Surgical History Surgical History H/O foot surgery Dr. Nico Peña History of dilatation and curettage History of laparoscopy History of History of varicose vein stripping Family History Family History Grandparent Hypertension Family history of lung cancer Other Diabetes mellitus Family history of coronary artery disease Social History Social History Smoking packs per day: 0.5 Smoking cigarettes per day: 10.0 Smoking status: Current every day smoker Tobacco type: e-cigarettes/vaping Second hand tobacco smoke exposure: No Alcohol intake: current Alcohol use details: rarely Substance use: current Substance use type: marijuana Do You Feel Safe in your Home?: Yes Lack of Transportation: No Lack of Food: Sometimes True Current Housing: I Have Housing Concerned About Future Housing: No Difficulty Paying Gas/Electric Bills: YES Difficulty Paying for Meds: No Currently Unemployed: YES Education: Associate Degree Difficulty w/ Childcare or Family Care: No Living arrangements: with family Occupation/Education: occupation 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 Gender identity (if verbalized by the patient): Female Meds Home Medications and Allergies Home Medications ?Medication ?Instructions ?Recorded ?Confirmed ?Type cholecalciferol (vitamin D3) 10 10 mcg PO DAILY 07/23/23 03/18/25 History mcg (400 unit) capsule ketorolac 10 mg tablet 10 mg PO Q8H PRN pain #20 tabs 04/29/24 03/10/25 Rx ibuprofen 800 mg tablet 800 mg PO TID PRN pain #90 tabs 10/06/24 03/10/25 Rx methocarbamol 500 mg tablet 500 mg PO TID PRN muscle spasm #60 10/06/24 03/10/25 Rx tabs famotidine 40 mg tablet 40 mg PO DAILY #90 tabs 11/16/24 03/18/25 Rx alprazolam 0.25 mg tablet (Xanax) 0.25 mg PO BID PRN anxiety #20 tabs 01/10/25 03/18/25 Rx citalopram 40 mg tablet 40 mg PO DAILY #90 tabs 01/10/25 03/18/25 Rx albuterol sulfate 90 mcg/actuation See Rx Instructions .Route 01/18/25 03/18/25 Rx aerosol inhaler .COMPLEX #8.5 grams ondansetron 4 mg disintegrating 4 mg PO Q8H PRN nausea and 02/22/25 03/18/25 Rx tablet vomiting #14 tabs hydroxyzine HCl 25 mg tablet 25 mg PO TID PRN anxiety #90 tabs 02/23/25 03/18/25 Rx lisdexamfetamine 40 mg capsule 40 mg PO QAM #30 caps 02/23/25 03/18/25 Rx (Vyvanse) ixekizumab 80 mg/mL subcutaneous 80 mg subcut ONCE 03/08/25 03/18/25 History auto-injector (Taltz Autoinjector) black cohosh 200 mg capsule 3,000 mg PO DAILY 03/10/25 03/18/25 History furosemide 20 mg tablet (Lasix) 20 mg PO BID 03/10/25 03/18/25 History Allergies Allergy/AdvReac Type Severity Reaction Status Date / Time No Known Allergies Allergy Verified 03/18/25 09:46 Vital Signs Vital Signs - 24 hr 03/18/25 09:51 Temperature 98.0 F Pulse Rate 75 Respiratory Rate 16 Blood Pressure 128/84 Pulse Oximetry 100 Oxygen Delivery Room Air Exam Const: General: cooperative and healthy appearing Resp: Effort & Inspection: normal respiratory effort and able to speak in complete sentences Auscultation: clear to auscultation bilaterally Cardio: Rate: regular rate Rhythm: regular rhythm GI: Inspection: normal to inspection GI Palp: No No hepatosplenomegaly present Auscultation: normal bowel sounds Rectal Exam: deferred Skin: General skin exam: normal color Psych: Appearance: grossly normal Mental Status: mental status grossly normal Assessment and Plan Assessment and plan (1) Diarrhea: Code(s): R19.7 - Diarrhea, unspecified Status: Acute Assessment and Plan: The patient is deemed a good candidate for the procedure. Consent signed. Will proceed.
--- NOTE | 2025-03-18 11:23 | S_PTH ---
PATIENT: Lory Velázquez LOC: [facility]#:[id number] AGE/SX: 55/F ROOM: RE03/18/[address]: Zackary Arriaza MD : 1970 BED: DIS: 03/18/2025 SPEC #: [id number] RECD: 03/18/25 11:50 STATUS: WALTER REQ #: [id number] DELORES: 03/18/25 11:[address]: Zakcary Arriaza DEPT: [facility] [place] Surgical RECD BY: Shagufta Tucker ENTERED: 03/18/25 11:50 SP TYPE: Surgical OTHR DR: Mian Mathews MD Tissues: A - Colon Biopsy B - Colon Biopsy Procedures: Hematoxylin and Eosin Stain Gross and Microscopic Level 4
[2025-03-18 11:26] VITALS: BP 126/96; PULSE 71; RESP 16; O2SAT 98
[2025-03-18 11:36] VITALS: BP 108/73; PULSE 65; RESP 16; O2SAT 100
[2025-03-18 11:46] VITALS: BP 121/86; PULSE 70; RESP 18; O2SAT 100
== END 2025-03-18 12:01 | disposition home or self-care (01) ==
PROVIDERS: Anesthesiology; PCP Family Medicine; Referring Provider Internal Medicine Gastroenterology; Visit Provider Internal Medicine Gastroenterology
PROC: 0DJD8ZZ Inspection of Lower Intestinal Tract, Via Natural or Artificial Opening Endoscopic (ICD-10-PCS; CPT 45378; principal; 2025-03-18 10:30)
DX: R19.7 Diarrhea, unspecified (principal); K57.30 Diverticulosis of large intestine without perforation or abscess without bleeding; K64.8 Other hemorrhoids; F17.290 Nicotine dependence, other tobacco product, uncomplicated; F12.90 Cannabis use, unspecified, uncomplicated; E66.9 Obesity, unspecified; Z68.30 Body mass index [BMI] 30.0-30.9, adult
CPT/HCPCS: 45380; 88305; J2003; J2704; J7120